=== PATIENT | male | born 1970 | race Caucasian/White ===

== ENCOUNTER 2020-12-22 12:33 | Outpatient (REF) | payer BC, SELFPAY ==
[2020-12-23 07:22] LABS: SARS COV2 PCR INHOUSE NEGATIVE (Negative)
== END 2020-12-22 12:34 | disposition home or self-care (01) ==
LOC: HO.LAB 12:33
PROVIDERS: Visit Provider Internal Medicine
DX: Z20.822 Contact with and (suspected) exposure to COVID-19 (principal)
CPT/HCPCS: C9803; U0003

== ENCOUNTER 2021-10-25 09:49 | Outpatient (REF) | payer BC, SELFPAY ==
[2021-10-25 12:02] LABS: Alanine Aminotransferase 21 U/L (0-40); Albumin Level 4.4 g/dL (3.5-5.0); Alkaline Phosphatase 78 U/L (39-117); Anion Gap 11 (12-20); Aspartate Amino Transferase 19 U/L (5-37); Bilirubin Total 0.4 mg/dL (0.0-1.0); Blood Urea Nitrogen 10 mg/dL (9-16); Calcium 9.8 mg/dL (8.4-10.2); Carbon Dioxide 29 mmol/L (22-29); Chloride 101 mmol/L (96-108); Estimated Glomerular Filt Rate > 60; Glucose Random 109 mg/dL (60-115); Potassium 4.4 mmol/L (3.3-5.1); Sodium 137 mmol/L (135-145); Total Protein 7.2 g/dL (6.5-8.0)
== END 2021-10-25 09:50 | disposition home or self-care (01) ==
LOC: HO.HMGCLDS 09:49
PROVIDERS: PCP Internal Medicine; Visit Provider Internal Medicine
DX: Z00.01 Encounter for general adult medical examination with abnormal findings (principal); I49.9 Cardiac arrhythmia, unspecified; F10.20 Alcohol dependence, uncomplicated
CPT/HCPCS: 36415; 80053

== ENCOUNTER → 2021-12-05 14:07 | Outpatient (BNVA) | payer BC, SELFPAY | PROVIDERS: PCP Internal Medicine; Referring Provider Internal Medicine; Visit Provider Internal Medicine Cardiovascular Disease | DX: I49.3 Ventricular premature depolarization (principal); F17.210 Nicotine dependence, cigarettes, uncomplicated | CPT/HCPCS: 99202 ==

== ENCOUNTER 2021-12-27 06:01 | Outpatient (REF) | payer BC, SELFPAY ==
[2021-12-27 08:07] LABS: Anion Gap 13 (12-20); Blood Urea Nitrogen 14 mg/dL (9-16); Calcium 9.4 mg/dL (8.4-10.2); Carbon Dioxide 28 mmol/L (22-29); Chloride 107 mmol/L (96-108); Cholesterol 168 mg/dL; Estimated Glomerular Filt Rate > 60; Glucose Random 117 mg/dL (60-115); HDL Cholesterol 97 mg/dL; LDL Cholesterol Calculated 65 mg/dl; Potassium 5.1 mmol/L (3.3-5.1); Sodium 143 mmol/L (135-145); Triglycerides 31 mg/dL
[2021-12-29 14:51] LABS: CRP High Sensitivity 2.6 mg/L
== END 2021-12-27 06:02 | disposition home or self-care (01) ==
LOC: HO.LAB 06:01
PROVIDERS: PCP Internal Medicine; Visit Provider Internal Medicine Cardiovascular Disease
DX: I25.10 Atherosclerotic heart disease of native coronary artery without angina pectoris (principal); I49.3 Ventricular premature depolarization; I50.30 Unspecified diastolic (congestive) heart failure; E78.5 Hyperlipidemia, unspecified
CPT/HCPCS: 36415; 80048; 80061; 83735; 86141

== ENCOUNTER → 2022-01-11 07:29 | Outpatient (REF) | payer BC, SELFPAY ==
--- NOTE | 2022-01-11 07:32 | ECG_ITS ---
Hook-up date: 2022-01-11 08:57:00 Duration: 25:56:00 Test Indications: pvc's, abn ekg, card. arrythmia Medications: [id number] QRS complexes 114 Ventricular ectopics which represent <1 % of total QRS comp. 80 Supraventricular ectopics which represent <1 % of total QRS comp. * Paced QRS complexs which represent % of total QRS comp. VENTRICULAR ECTOPY 107 Isolated 0 Bigeminal Cycles 2 Couplets 1 Runs 3 Beats in Runs 3 Beats LONGEST at 174 BPM at 00:12:07 2022-01-12 3 Beats FASTEST at 174 BPM at 00:12:07 2022-01-12 SUPRAVENTRICULAR ECTOPY 39 Isolated 2 Couplets 1 Runs 37 Beats in Runs 37 Beats LONGEST at 133 BPM at 01:55:52 2022-01-12 37 Beats FASTEST at 133 BPM at 01:55:52 2022-01-12 HEART RATES 49 MIN at 05:26:50 2022-01-12 85 AVG 150 MAX at 20:15:19 2022-01-11 LONGEST RR 1.4960 secs at 05:26:45 2022-01-12 S-T LEVELS Channel 1 - 128 mm at 08:57:00 2022-01-11 - 128 mm at 08:57:00 2022-01-11 Channel 2 - 128 mm at 08:57:00 2022-01-11 - 128 mm at 08:57:00 2022-01-11 Channel 3 - 128 mm at 02:81:61 -- - 128 mm at 02:81:61 Basic rhythm Normal sinus rhythm No long pause or profound bradycardia Rare ectopics One 3 beat robert of NSVT at 174 bpm One 37 beats os SVT, ? PAT at 133 bpm Patient did not report any symptoms in the diary Referred By: Brown Saucedo Overread By: BROWN SAUCEDO MD
--- NOTE | 2022-01-11 07:32 | CA_ITS ---
Transthoracic Echocardiogram Patient (Last, First, Middle): John Salas W Gender: Male Date of : 1970 Age: 51 Procedure Date: 01/11/2022 Procedure Type: Transthoracic Echocardiogram Location: OP Height: 193.04 cm Weight: 88.45 kg BSA: 2.19 m2 Heart Rate: bpm BP: 125 / 78 mmHg Monitoring And Evaluation Advisor: VH/TO Referring MD: Deshawn Cam MD Leasing Manager: Brown Saucedo MD Symptoms: I49.3 - Ventricular premature depolarization Study Quality: Fair ECG Rhythm: Sinus Conclusions: - 1. Normal LV systolic and diastolic function 2. Normal cardiac valvular Doppler 3. Normal RV systolic pressure 4. No gross pericardial effusion Findings Left Ventricle Normal left ventricular size, thickness, and systolic function. The visually estimated ejection fraction is between 55-60%. Spectral Doppler is indicative of a normal filling pattern. Right Ventricle Normal right ventricular cavity size and systolic function. Atria The left atrium is likely dilated. There is no evidence of interatrial shunt. The right atrium is normal in size. Aortic Valve Normal aortic valve structure and function. There is no aortic valve stenosis. There is no aortic valve regurgitation. Mitral Valve Normal mitral valve structure and function. There is trace mitral valve regurgitation. There is no mitral valve stenosis. Pulmonic Valve The pulmonic valve was not well visualized. Tricuspid Valve Likely normal tricuspid valve structure and function. There is trace tricuspid valve regurgitation. The right ventricular systolic pressure is normal. The right ventricular systolic pressure is 19 mmHg. There is no evidence of pulmonary hypertension. Great Vessels All visible segments of the aorta are normal in size. The pulmonary artery was not well visualized. Venous The inferior vena cava is mildly dilated and collapses greater than 50% with inspiration. Pericardium/Pleural There is no evidence of pericardial effusion. Prior Study Comparison No prior study available for comparison. Measurements 2D Linear Measurements IVSd: 0.89 0.6-0.9/0.6-1.0 cm LVIDd: 5.17 3.9-5.3/4.2-5.9 cm LVIDd Index: 2.36 2.4-3.2/2.2-3.1 cm/m2 LVIDs: 3.58 2.0-3.6 cm LVPWd: 0.96 0.7-1.1 cm LA Diam: 3.30 2.7-3.8/3.0-4.0 cm LAIDs Index: 1.51 1.5-2.3 cm/m2 LV Mass: 216.38 67-162/88-224 g LV Mass Index: 98.80 43-95/49-115 g/m2 LVOT Diam: 2.50 3.0+(-)1.3 cm 2D Systolic Function EF 4C: 63.20 >55% EF 2C: 50.40 >55% EF BiP: 55.50 >55% Mitral Valve MV Pk E: 0.79 MV PK A: 0.45 MV Decel Time: 201.00 E/A: 1.80 E'Lateral: 13.60 E'Medial: 11.30 E/E' Med: 7.00 E/E' Lat: 5.80 PHT: 59.00 MVA PHT: 3.73 Decel [place]: 3.94 Aortic Valve AoV Pk Rayshawn: 1.31 AoV Mn Rayshawn: 0.87 AoV VTI: 0.26 AoV Pk Grad: 7.00 Aov Mn Grad: 3.00 CRISTELA Cont.VTI: 3.54 LVOT LVOT Pk Rayshawn: 0.97 LVOT Mn Rayshawn: 0.60 LVOT VTI: 0.19 LVOT Pk Grad: 4.00 LVOT Mn Grad: 2.00 LVOT Diam: 2.50 LVOT Area: 4.91 Diastolic Function MV Pk E: 0.79 MV Pk A: 0.45 E/A: 1.80 E'Medial: 11.30 E/E' Med: 7.00 E' Laterial: 13.60 E/E' Lat: 5.80 Right Ventricle TAPSE (mm): 19.80 TVS' Rayshawn: 13.40 Tricuspid Valve TR Pk Rayshawn: 1.97 TR Pk Grad: 16.00 RA Press: 3.00 RVSP: 19.00 Great Vessels Aorta Sinus of Valsalva: 3.90 2.0-3.[address] [place]: 3.21 1.7-3.4 cm Ao Asc: 3.70 2.1-3.4 cm Updated in Other Vendor System with Status of Final Brown Saucedo MD electronically signed on 01/11/2022 12:05:54 PM with status of Final
--- NOTE | 2022-01-11 07:32 | CA_ITS ---
Acquisition Time: 2022-01-11 08:52:07 Total Exercise Time: 00:07:31 Test Indications: Abnormal ECG, PVC'S Medications: Protocol: VKIRAM Max HR: 164 BPM 95% of Pred: 171 BPM Max BP: 206/092 mmHG Max Work Load: 9.3 METS Exercise stress test using Vikram protocol. total of 7 min 31 sec. METS 9.3, MAPHR up to 95 %. Pt tolerated well, fatiqued, mild SOB, no CP. EKG with PVC's seen in recovery, no ischemic changes seen during exercise or in recovery. Hypertensive response to exercise. Test reviewed with Dr. Saucedo. Referred By: Brown Saucedo Overread By: Salome Sabillon NP
== END ==
LOC: HO.CARD 07:29
PROVIDERS: PCP Internal Medicine; Visit Provider Internal Medicine
DX: I49.3 Ventricular premature depolarization (principal); I49.9 Cardiac arrhythmia, unspecified; R94.31 Abnormal electrocardiogram [ECG] [EKG]
CPT/HCPCS: 93017; 93225; 93226; 93306

== ENCOUNTER → 2022-01-31 15:19 | Outpatient (BNVA) | payer BC, SELFPAY | PROVIDERS: PCP Internal Medicine; Referring Provider Internal Medicine; Visit Provider Internal Medicine Cardiovascular Disease | DX: I47.1 Supraventricular tachycardia (principal) ==

== ENCOUNTER 2022-10-15 07:38 | Emergency (ER) | payer BC, SELFPAY ==
[2022-10-15 07:46] VITALS: BMI 23.7
[2022-10-15] MEDS: Lidocaine HCl 1 % MPF 5 ML VIAL SUBCUT (08:34)
[2022-10-15] MEDS: cephALEXin 500 MG CAPSULE PO (08:35)
[2022-10-15] MEDS: Doxycycline Monohydrate 100 MG CAPSULE PO (08:35)
--- NOTE | 2022-10-15 08:35 | ED.SKABFB ---
HPI - Skin/Abscess/Foreign Bdy General Chief complaint: Skin/Abscess/Foreign Body Stated complaint: needs abscess drained on face Time Seen by Provider: 10/15/22 08:07 Source: patient and family Mode of arrival: ambulatory Limitations: no limitations History of Present Illness complaint: abscess/boil Onset (ago): day(s) (For days worse today) Location: face ( right chin) Severity: moderate Quality: aching Pain Consistency: constant Relieving factors: none Exacerbating factors: palpation Context: none Associated symptoms: denies other symptoms Treatments prior to arrival: none Related Data Previous Rx's Medication Instructions Recorded cephalexin 500 mg capsule 500 mg PO Q6H 10 days #40 caps 10/15/22 doxycycline monohydrate 100 mg 100 mg PO BID 10 days #20 tabs 10/15/22 tablet ibuprofen 800 mg tablet 800 mg PO Q8H PRN pain #14 tabs 10/15/22 oxycodone 5 mg tablet 5 mg PO Q6H PRN pain #14 tabs 10/15/22 Allergies Allergy/AdvReac Type Severity Reaction Status Date / Time No Known Allergies Allergy Verified 10/15/22 07:48 Review of Systems Review of Systems: Constitutional : Denies history of same, Denies any other sites involved, Denies IV drug use, Denies history of MRSA, Denies swollen glands, Denies injury, Denies Fever, Denies Chills, + Sig Pain, Denies Systemic symptoms Cardiovascular : No Chest Pain, No SOB Respiratory : No Dyspnea Gastrointestinal : No abdominal pain Musculoskeletal : No Joint Swelling Skin : + abscess with surrounding erythema, No skin laceration, No Foreign bodies, No spreading rash, Denies bites, Denies discharge, Neuro : No Weakness, No Numbness/tingling Psych : No SI/HI/thoughts of self injury Yes all other systems are reviewed and are negative PMF Past Medical History Attestation statement: The following information was validated with the patient. Source: old records reviewed, obtained from family and nursing notes reviewed Surgical History History of varicocele Right toe amputee Family History Family History Father Lung cancer Mother Osteoporosis Maternal Grandmother Afib Paternal Uncle No problems noted. Social History Social History Housing: House Alcohol intake: current Alcohol intake frequency: a few times a week Patient Tobacco Use Status: Current everyday Tobacco user Cigarette Packs Per Day: 1 Use of substances other than those prescribed or required for medical reasons: No Advance Directives: No Advance Directives Information Provided: Yes Current occupational status: employed Physical Exam Vital Signs: Vital Signs: BMI result Body Mass Index 23.7 vital signs have been reviewed as normal and appeared to be correct. Blood pressure normal Heart rate normal. Respiration rate normal. Temperature normal. Oxygen saturation normal. Appearance: Alert. Oriented X3. No acute distress. Head: Normal external exam. Normocephalic. Atraumatic. Eyes: PERRLA. EOMI. Conjunctiva and sclera normal. Eyelids normal. ENT: Pharynx normal. Uvula midline. Moist mucous membranes. Neck: Normal inspection. Neck supple. FROM. CVS: Normal heart rate and rhythm. Respiratory: No respiratory distress. Painless inspiration. Skin: Skin warm and dry. Normal skin color. Normal skin turgor. tender fluctuant 2 cm abscess with surrounding erythema to right chin. No streaking noted. No foreign bodies or active drainage noted at this time.No additional rashes/lesions/lacerations noted. Extremities:Extremities exhibit normal range of motion. Extremities nontender. Neuro: Oriented X 3. No motor deficit. No sensory deficit. Reflexes normal. Normal steady gait. No focal neuro deficits noted. Vascular: + radial pulses. Normal cap refill. No cyanosis noted to upper extremity nails and lower extremity toes nails. Course Course Course Narrative: IMP/Plan: abscess. No systemic toxicity, and pt looks well. + surrounding cellulitis. Not c/w nec fasc/ myositis/ DVT/ osteomyelitis. patient now status post I&D of abscess and patient tolerated procedure well. No complications. No labs or imaging indicated at this time. Will DC home antibiotics and symptomatic treatment instructions return if any new or worsening symptoms to follow up with primary care provider. Patient understands agrees this plan. Medications Administered Discontinued Medications Generic Name Dose Route Start Last Admin Trade Name Freq PRN Reason Stop Dose Admin Cephalexin HCl 500 mg 10/15/22 08:11 10/15/22 08:35 Cephalexin 500 Mg Capsule PO 10/15/22 08:12 500 mg ONCE ONE Administration Doxycycline Monohydrate 100 mg 10/15/22 08:11 10/15/22 08:35 Doxycycline Monohydrate 100 Mg Capsule PO 10/15/22 08:12 100 mg ONCE ONE Administration Lidocaine HCl 5 ml 10/15/22 08:11 10/15/22 08:34 Lidocaine Hcl 1 % Mpf 5 Ml Vial SUBCUT 10/15/22 08:12 5 ml ONCE ONE Administration Procedures Abscess I/D Site: face Side (if applicable): right Local Anesthetic: lidocaine 1% Amount of anesthesia used (mL): 5 Technique: needle aspiration and incised with blade Amount of fluid expressed (mL): 5 Sent for culture/gram staining?: No Irrigation: Yes Packing used?: none Complications: other ( No complications patient tolerated procedure well) Discharge Plan Discharge Clinical Impression: Cellulitis and abscess of face Patient Disposition: Home, Self-Care Instructions: Cellulitis (ED), Abscess Incision and Drainage (DC) Prescriptions: New doxycycline monohydrate 100 mg tablet 100 mg PO BID 10 Days Qty: 20 0RF cephalexin 500 mg capsule 500 mg PO Q6H 10 Days Qty: 40 0RF oxycodone 5 mg tablet 5 mg PO Q6H PRN (Reason: pain) Qty: 14 0RF Rx Instructions: Partial Fill upon patient request. ibuprofen 800 mg tablet 800 mg PO Q8H PRN (Reason: pain) Qty: 14 0RF Referrals: Deshawn Cam MD [Primary Care Provider] - 2 days Stand Alone Forms: Work/School Release Print Language: Micronesian
[2022-10-15 09:00] VITALS: BP 113/80; PULSE 87; RESP 18; TEMP 36.9; O2SAT 97
== END 2022-10-15 09:05 | disposition home or self-care (01) ==
PROVIDERS: Emergency Provider Emergency Medicine; PCP Internal Medicine
DX: L02.01 Cutaneous abscess of face (principal)
CPT/HCPCS: 10060; 99284

== ENCOUNTER 2022-10-17 14:07 | Emergency (ER) | payer BC, SELFPAY ==
--- NOTE | ~2022-10-17 | CT_ITS ---
EXAMINATION: CT SOFT TISSUE NECK WITH CONTRAST CLINICAL INFORMATION: Facial abscess extending into the neck. COMPARISON: None TECHNIQUE: Following the administration of 100 mL of Omnipaque 300 intravenous contrast, helical imaging was performed in the axial plane with generation of coronal and sagittal reformatted images. This CT examination was performed using dose optimization techniques as appropriate, variously including the following: *Automated exposure control *Adjustment of mA and/or kV according to patient size (this includes techniques or standardized protocols for targeted exams where dose is matched to indication/reason for exam; i.e. extremities or head) *Use of iterative reconstruction technique DLP: 568 mGy-cm FINDINGS: There is soft tissue stranding and infiltration of the right-sided gingivobuccal tissues extending through the premandibular region and the inferior aspect of the right submandibular triangle. There is thickening of the fascia including the platysma. Focal phlegmonous change is seen just inferior and lateral to the right mandibular body as seen on series 6 image 56/113. No drainable fluid collection is seen. There is no inflammation along the floor of mouth. There is periapical abscess involving the left central and lateral mandibular incisors. Periapical disease is seen involving the right posterior mandibular molar. The palatine tonsillar fossa and base of tongue appear normal. No inflammation is seen along the floor of mouth. The parotid and submandibular glands are unremarkable. No laryngeal lesion is seen. Reactive appearing lymph nodes are seen in the right more than left submandibular stations as well as at level 2. The largest lymph node on the right at level 2A measures up to 2.0 cm. The thyroid gland is unremarkable. No upper mediastinal adenopathy is seen. There is no consolidation within the upper lungs. No acute intracranial abnormality is seen. The major neck vessels are patent. Mild degenerative changes are seen within the spine. There is complete opacification of the right maxillary sinus with hyperostotic thickening of the maxillary sinus velazquez reflecting sequela of chronic inflammation. CT/CT soft tissue neck w IV con IMPRESSION: 1. Inflammatory changes are seen within the right-sided gingivobuccal tissues extending through the premandibular region and inferior aspect of the right submandibular triangle. Focal phlegmonous change is seen just inferior and lateral to the right mandibular body. No drainable fluid collection is seen. Reactive appearing lymph nodes are seen in the right more than left submandibular stations as well as at level 2. 2. Periapical abscess is seen involving the left central and lateral mandibular incisors. Periapical disease is seen involving the right posterior mandibular molar.
--- NOTE | 2022-10-17 14:57 | ED_ITS ---
HPI - General Adult General Stated complaint: Abscess Related Data Previous Rx's Medication Instructions Recorded cephalexin 500 mg capsule 500 mg PO Q6H 10 days #40 caps 10/15/22 doxycycline monohydrate 100 mg 100 mg PO BID 10 days #20 tabs 10/15/22 tablet ibuprofen 800 mg tablet 800 mg PO Q8H PRN pain #14 tabs 10/15/22 oxycodone 5 mg tablet 5 mg PO Q6H PRN pain #14 tabs 10/15/22 Allergies Allergy/AdvReac Type Severity Reaction Status Date / Time No Known Allergies Allergy Verified 10/15/22 07:48 [facility] Past Medical History Surgical History History of varicocele Right toe amputee Family History Family History Father Lung cancer Mother Osteoporosis Maternal Grandmother Afib Paternal Uncle No problems noted. Social History Social History Housing: House Alcohol intake: current Alcohol intake frequency: a few times a week Patient Tobacco Use Status: Current everyday Tobacco user Cigarette Packs Per Day: 1 Current occupational status: employed Course Course Course Narrative: [employer] - 52 yo male with history of right facial abscess that was drained here 10/15 here with worsening swelling of the right jaw that is now extending into the neck. Pain with opening jaw at home. No fevers at home. Has been compliant with doxy and kelflex. Labs and CT scan ordered. VSS and airway patent in triage Discharge Plan Discharge Prescriptions: No Action doxycycline monohydrate 100 mg tablet 100 mg PO BID 10 Days Qty: 20 0RF cephalexin 500 mg capsule 500 mg PO Q6H 10 Days Qty: 40 0RF oxycodone 5 mg tablet 5 mg PO Q6H PRN (Reason: pain) Qty: 14 0RF Rx Instructions: Partial Fill upon patient request. ibuprofen 800 mg tablet 800 mg PO Q8H PRN (Reason: pain) Qty: 14 0RF
[2022-10-17 14:58] VITALS: BP 141/94; PULSE 99; RESP 18; TEMP 37.1; O2SAT 98; BMI 23.1
[2022-10-17 17:25] LABS: MANUAL DIFF FLAG NO
[2022-10-17 17:43] LABS: Basophils Absolute Auto 0.1 X10*3/uL (0.0-0.2); Basophils Percent Auto 0.8 % (0-2); Eosinophils Absolute Auto 0.2 X10*3/uL (0.0-0.4); Eosinophils Percent Auto 1.8 % (0-4); Hematocrit 41.3 % (42.0-52.0); Hemoglobin 14.6 g/dl (14.0-18.0); Imm Gran Pct Auto 1.1 % (0.0-0.4); Lymphocytes Absolute Auto 2.9 X10*3/uL (1.2-4.9); Lymphocytes Percent Auto 32.2 % (20-40); Mean Corpuscular HGB Conc 35.4 g/dl (31.0-36.0); Mean Corpuscular Hemoglobin 33.6 pg (27.0-33.0); Mean Corpuscular Volume 94.9 fL (80.0-98.0); Mean Platelet Volume 9.9 fL (9.4-12.4); Monocytes Absolute Auto 0.6 X10*3/uL (0.1-1.2); Monocytes Percent Auto 6.4 % (2-11); Neutrophils Absolute Auto 5.2 x10*3/uL (2.0-8.3); Neutrophils Percent Auto 57.7 % (45-73); Platelet Count 317 X10*3/uL (160-400); Red Blood Count 4.35 X10*6/uL (4.60-5.80); Red Cell Distribution Width 12.4 % (11.0-16.0); White Blood Count 8.9 X10*3/uL (4.8-10.8)
[2022-10-17 18:25] LABS: Lactic Acid 1.2 mmol/L (0.5-2.0)
[2022-10-17 18:30] LABS: Alanine Aminotransferase 19 U/L (0-40); Albumin Level 4.3 g/dL (3.5-5.0); Alkaline Phosphatase 72 U/L (39-117); Anion Gap 14 (12-20); Aspartate Amino Transferase 19 U/L (5-37); Bilirubin Direct 0.2 mg/dL (0.0-0.5); Bilirubin Total 0.4 mg/dL (0.0-1.0); Blood Urea Nitrogen 8 mg/dL (9-16); Carbon Dioxide 23 mmol/L (22-29); Chloride 105 mmol/L (96-108); Creatinine Clr Calc Pharmacy 165.7; Estimated Glomerular Filt Rate > 60; Glucose Random 88 mg/dL (60-115); Magnesium 1.9 mg/dL (1.6-2.6); Potassium 4.1 mmol/L (3.3-5.1); Sodium 138 mmol/L (135-145); Total Protein 6.8 g/dL (6.5-8.0)
[2022-10-17] MEDS: iohexoL 350 MG/ML 100 ML INFUS..BTL IV (18:37)
--- NOTE | 2022-10-17 19:01 | ED.SKABFB ---
HPI - Skin/Abscess/Foreign Bdy General Chief complaint: Skin/Abscess/Foreign Body <MANSOOR Holbrook Last Filed: 10/17/22 19:41> Stated complaint: Abscess <MANSOOR Holbrook Last Filed: 10/17/22 19:41> Time Seen by Provider: 10/17/22 17:11 <MANSOOR Holbrook Last Filed: 10/17/22 19:41> Source: patient and family ( at bedside ) <MANSOOR Holbrook Last Filed: 10/17/22 19:41> Mode of arrival: ambulatory <MANSOOR Holbrook Last Filed: 10/17/22 19:41> Limitations: no limitations <MANSOOR Holbrook Last Filed: 10/17/22 19:41> History of Present Illness HPI narrative: 52yoM presenting to the ED c c/o worsening erythema/swelling to the right chin abscess that he had I&D performed by myself on 10/15/22 and sent home on PO antibiotics Of doxycycline and Keflex doxycycline b.i.d. 100 mg and Keflex every 6 hours 500 mg Q6Hrs since the I&D despite taking the PO abx's. Reports he has had thick yellow/green purulent discharge. Otherwise denies fevers, IVDA; h/o MRSA; FCS; Swollen glands; Injury; Suspected FB; Bites; Bleeding; Systemic symptoms, trouble swallowing or breathing, sore throat, cough, SOB, Chest pain or any other symptoms complaints or concerns at this time. <MANSOOR Holbrook Last Filed: 10/17/22 19:41> MD complaint: abscess/boil <MANSOOR Holbrook Last Filed: 10/17/22 19:41> Onset (ago): day(s) <MANSOOR Holbrook Last Filed: 10/17/22 19:41> Location: face (right chin ) <MANSOOR Holbrook Last Filed: 10/17/22 19:41> Severity: moderate <MANSOOR Holbrook Last Filed: 10/17/22 19:41> Quality: aching and constant <MANSOOR Holbrook Last Filed: 10/17/22 19:41> Pain Consistency: constant <MANSOOR Holbrook Last Filed: 10/17/22 19:41> Relieving factors: none <MANSOOR Holbrook Last Filed: 10/17/22 19:41> Exacerbating factors: palpation <MANSOOR Holbrook Last Filed: 10/17/22 19:41> Context: none <MANSOOR Holbrook Last Filed: 10/17/22 19:41> Associated symptoms: denies other symptoms <MANSOOR Holbrook Last Filed: 10/17/22 19:41> Treatments prior to arrival: other (see above ) <MANSOOR Holbrook Last Filed: 10/17/22 19:41> Related Data Home medications: Previous Rx's Medication Instructions Recorded cephalexin 500 mg capsule 500 mg PO Q6H 10 days #40 caps 10/15/22 doxycycline monohydrate 100 mg 100 mg PO BID 10 days #20 tabs 10/15/22 tablet amoxicillin 500 mg-potassium 1 tab PO BID #19 tabs 10/17/22 clavulanate 125 mg tablet (Augmentin) <MANSOOR Holbrook Last Filed: 10/17/22 19:41> Allergies/Adverse reactions: Allergies Allergy/AdvReac Type Severity Reaction Status Date / Time No Known Allergies Allergy Verified 10/15/22 07:48 <MANSOOR Holbrook Last Filed: 10/17/22 19:41> Review of Systems Review of Systems: Constitutional : Denies history of same, Denies any other sites involved, Denies IV drug use, Denies history of MRSA, Denies swollen glands, Denies injury, Denies Fever, Denies Chills, + Sig Pain, Denies Systemic symptoms Cardiovascular : No Chest Pain, No SOB Respiratory : No Dyspnea Gastrointestinal : No abdominal pain Musculoskeletal : No Joint Swelling Skin : + abscess with surrounding erythema and + purulent discharge and + spreading rash/erythema, No skin laceration, No Foreign bodies, Denies bites, Neuro : No Weakness, No Numbness/tingling Psych : No SI/HI/thoughts of self injury <MANSOOR Holbrook Last Filed: 10/17/22 19:41> Yes all other systems are reviewed and are negative <MANSOOR Holbrook Last Filed: 10/17/22 19:41> PMFSH Past Medical History Attestation statement: The following information was validated with the patient. <MANSOOR Holbrook - Last Filed: 10/17/22 19:41> Source: old records reviewed and nursing notes reviewed <MANSOOR Holbrook - Last Filed: 10/17/22 19:41> Surgical History: Surgical History History of varicocele Right toe amputee <MANSOOR Holbrook - Last Filed: 10/17/22 19:41> Family History Family History: Family History Father Lung cancer Mother Osteoporosis Maternal Grandmother Afib Paternal Uncle No problems noted. <MANSOOR Holbrook - Last Filed: 10/17/22 19:41> Social History Social History: Social History Housing: House Alcohol intake: current Alcohol intake frequency: a few times a week Patient Tobacco Use Status: Current everyday Tobacco user Cigarette Packs Per Day: 1 Advance Directives: No Advance Directives Information Provided: Yes Current occupational status: employed <MANSOOR Holbrook - Last Filed: 10/17/22 19:41> Physical Exam Vital Signs: Vital Signs: Last Vital Signs Temp 98.7 F 10/17/22 14:58 Pulse 99 10/17/22 14:58 Resp 18 10/17/22 14:58 BP 141/94 H 10/17/22 14:58 Pulse Ox 98 10/17/22 14:58 O2 Del Method 10/17/22 14:58 BMI result Body Mass Index 23.1 vital signs have been reviewed as normal and appeared to be correct. Blood pressure 141/94 Heart rate normal. Respiration rate normal. Temperature normal. Oxygen saturation normal. <MANSOOR Holbrook - Last Filed: 10/17/22 19:41> Vital Signs: Last Vital Signs Temp 98.7 F 10/17/22 14:58 Pulse 99 10/17/22 14:58 Resp 18 10/17/22 14:58 BP 141/94 H 10/17/22 14:58 Pulse Ox 98 10/17/22 14:58 O2 Del Method 10/17/22 14:58 BMI result Body Mass Index 23.1 <Lalita Case MD - Last Filed: 10/17/22 20:42> Appearance: Alert. Oriented X3. No acute distress. Head: Normal external exam. Normocephalic. Atraumatic. Eyes: PERRLA. EOMI. Conjunctiva and sclera normal. Eyelids normal. ENT: Pharynx normal. Uvula midline. Moist mucous membranes. Neck: Normal inspection. Neck supple. FROM. CVS: Normal heart rate and rhythm. Respiratory: No respiratory distress. Painless inspiration. Skin: Skin warm and dry. Normal skin color. Normal skin turgor. to the right side of the chin patient has moderate soft tissue swelling and induration and tenderness to palpation around where he had the I&D abscess. Mild erythema spreading to the right lateral neck. No streaking is noted. No purulent drainage is noted on my exam at this time. pictures below noted. No additional rashes/lesions/lacerations noted. Extremities:Extremities exhibit normal range of motion. Extremities nontender. Neuro: Oriented X 3. No motor deficit. No sensory deficit. Reflexes normal. Normal steady gait. No focal neuro deficits noted. Vascular: + radial pulses Normal cap refill. No cyanosis noted to upper extremity nails <MANSOOR Holbrook - Last Filed: 10/17/22 19:41> Course Course Course Narrative: RME - 52 yo male with history of right facial abscess that was drained here 10/15 here with worsening swelling of the right jaw that is now extending into the neck. Pain with opening jaw at home. No fevers at home. Has been compliant with doxy and kelflex. Labs and CT scan ordered. VSS and airway patent in triage <MANSOOR Holbrook - Last Filed: 10/17/22 19:41> Reevaluation(s) Reevaluation #1: 52yoM presenting to the ED c c/o worsening erythema/swelling to the right chin abscess that he had I&D performed by myself on 10/15/22 and sent home on PO antibiotics Of doxycycline and Keflex doxycycline b.i.d. 100 mg and Keflex every 6 hours 500 mg Q6Hrs since the I&D despite taking the PO abx's. Reports he has had thick yellow/green purulent discharge. Labs were ordered in triage although patient did not have his labs obtained. Therefore at this time labs will be obtained along with CT soft tissue neck with IV contrast, blood cultures, lactic acid. Provide IV Zosyn and a L of IV fluids and re-evaluate. <MANSOOR Holbrook - Last Filed: 10/17/22 19:41> Time: 17:00 <MANSOOR Holbrook - Last Filed: 10/17/22 19:41> Reevaluation #2: Labs reviewed - patient does not have any leukocytosis. BUN is 8. Otherwise all other labs are within normal limits. imaging reviewed - negative for any drainable abscesses or collections to the right sided gingival / mandibular aspect. Although is patient is noted to have multiple periapical abscesses. Therefore at this time will plan to admit for failed outpatient treatment. Patient with at bedside understand and are agreeable to this plan. Speaking to the hospitalist about this at this time. <MANSOOR Holbrook - Last Filed: 10/17/22 19:41> Time: 19:17 <MANSOOR Holbrook - Last Filed: 10/17/22 19:41> Reevaluation #3: I was informed by Dr. Bautista, that she evaluated the patient, patient can be treated with the correct antibiotics at home, they already have an appointment planned with the dentist. I evaluated the patient myself, patient does have swelling, no purulence, reviewed the CT scan as well. Patient has per pickle abscesses involving the left central and lateral mandibular incisors. Patient given the 1st dose of Augmentin in the emergency room. Patient states that he prefers to go home. Hospitalization was considered by MANSOOR Wright. <Lalita Case MD - Last Filed: 10/17/22 20:42> Time: 20:38 <Lalita Case MD - Last Filed: 10/17/22 20:42> Medications Administered Discontinued Medications Generic Name Dose Route Start Last Admin Trade Name Freq PRN Reason Stop Dose Admin Piperacillin Sod/Tazobactam 50 mls @ 100 mls/hr 10/17/22 18:27 10/17/22 19:42 Sod 3.375 gm/ Sodium Chloride IV 10/17/22 18:56 Infused ONCE ONE Infusion Sodium Chloride 1,000 mls @ 999 mls/hr 10/17/22 18:30 10/17/22 19:09 Ns IVCONT 10/17/22 19:30 999 mls/hr .Q1H1M VERA Administration Iohexol 100 ml 10/17/22 18:36 10/17/22 18:37 Iohexol 350 Mg/Ml 100 Ml Infus..Btl IV 10/17/22 18:37 60 ml ONCE ONE Administration <MANSOOR Holbrook - Last Filed: 10/17/22 19:41> Medications Administered Discontinued Medications Generic Name Dose Route Start Last Admin Trade Name Freq PRN Reason Stop Dose Admin Piperacillin Sod/Tazobactam 50 mls @ 100 mls/hr 10/17/22 18:27 10/17/22 19:42 Sod 3.375 gm/ Sodium Chloride IV 10/17/22 18:56 Infused ONCE ONE Infusion Sodium Chloride 1,000 mls @ 999 mls/hr 10/17/22 18:30 10/17/22 19:09 Ns IVCONT 10/17/22 19:30 999 mls/hr .Q1H1M VERA Administration Iohexol 100 ml 10/17/22 18:36 10/17/22 18:37 Iohexol 350 Mg/Ml 100 Ml Infus..Btl IV 10/17/22 18:37 60 ml ONCE ONE Administration <Lalita Case MD - Last Filed: 10/17/22 20:42> Medical Decision Making Admission/Observation Consideration of admission/observation: Escalation of care including admission/observation considered <MANSOOR Holbrook - Last Filed: 10/17/22 19:41> Consult Healthcare Provider Management of the patient was discussed with: Hospitalist <MANSOOR Holbrook - Last Filed: 10/17/22 19:41> Lab Data MDM Lab Attestation statement: I reviewed the patient's lab results. <MANSOOR Holbrook - Last Filed: 10/17/22 19:41> Result Diagrams: 10/17/22 17:22 10/17/22 17:54 <MANSOOR Holbrook - Last Filed: 10/17/22 19:41> Labs: Lab Results 10/17/22 10/17/22 10/17/22 Range/Units 17:22 17:22 17:54 WBC 8.9 (4.8-10.8) X10*3/uL RBC 4.35 L (4.60-5.80) X10*6/uL Hgb 14.6 (14.0-18.0) g/dl Hct 41.3 L (42.0-52.0) % MCV 94.9 (80.0-98.0) fL MCH 33.6 H (27.0-33.0) pg MCHC 35.4 (31.0-36.0) g/dl RDW 12.4 (11.0-16.0) % Plt Count 317 (160-400) X10*3/uL MPV 9.9 (9.4-12.4) fL Immature Gran % (Auto) 1.1 H (0.0-0.4) % Neut % (Auto) 57.7 (45-73) % Lymph % (Auto) 32.2 (20-40) % [place] % (Auto) 6.4 (2-11) % Eos % (Auto) 1.8 (0-4) % Baso % (Auto) 0.8 (0-2) % Lymph # (Auto) 2.9 (1.2-4.9) X10*3/uL [place] # (Auto) 0.6 (0.1-1.2) X10*3/uL Eos # (Auto) 0.2 (0.0-0.4) X10*3/uL Baso # (Auto) 0.1 (0.0-0.2) X10*3/uL Abs Immat Gran (auto) 0.10 H (0.00-0.03) X10*3/uL Absolute Neuts (auto) 5.2 (2.0-8.3) x10*3/uL Absolute Nucleated RBC 0.000 (0.0-0.012) X10*3/uL Nucleated RBC % (auto) 0.0 (0.0-0.2) /100WBC Sodium 138 (135-145) mmol/L Potassium 4.1 (3.3-5.1) mmol/L Chloride 105 (96-108) mmol/L Carbon Dioxide 23 (22-29) mmol/L Anion Gap 14 (12-20) BUN 8 L (9-16) mg/dL Creatinine 0.65 (0.5-1.4) mg/dL Estim Creat Clear Calc 165.7 Estimated GFR > 60 Random Glucose 88 (60-115) mg/dL Lactic Acid (0.5-2.0) mmol/L Calcium 9.0 (8.4-10.2) mg/dL Magnesium Cancelled 1.9 Total Bilirubin 0.4 (0.0-1.0) mg/dL Direct Bilirubin 0.2 (0.0-0.5) mg/dL AST 19 (5-37) U/L ALT 19 (0-40) U/L Alkaline Phosphatase 72 (39-117) U/L C-Reactive Protein 2.27 H (< or = 0.50) mg/dL Total Protein 6.8 (6.5-8.0) g/dL Albumin 4.3 (3.5-5.0) g/dL 10/17/22 Range/Units 17:54 WBC (4.8-10.8) X10*3/uL RBC (4.60-5.80) X10*6/uL Hgb (14.0-18.0) g/dl Hct (42.0-52.0) % MCV (80.0-98.0) fL MCH (27.0-33.0) pg MCHC (31.0-36.0) g/dl RDW (11.0-16.0) % Plt Count (160-400) X10*3/uL MPV (9.4-12.4) fL Immature Gran % (Auto) (0.0-0.4) % Neut % (Auto) (45-73) % Lymph % (Auto) (20-40) % [place] % (Auto) (2-11) % Eos % (Auto) (0-4) % Baso % (Auto) (0-2) % Lymph # (Auto) (1.2-4.9) X10*3/uL [place] # (Auto) (0.1-1.2) X10*3/uL Eos # (Auto) (0.0-0.4) X10*3/uL Baso # (Auto) (0.0-0.2) X10*3/uL Abs Immat Gran (auto) (0.00-0.03) X10*3/uL Absolute Neuts (auto) (2.0-8.3) x10*3/uL Absolute Nucleated RBC (0.0-0.012) X10*3/uL Nucleated RBC % (auto) (0.0-0.2) /100WBC Sodium (135-145) mmol/L Potassium (3.3-5.1) mmol/L Chloride (96-108) mmol/L Carbon Dioxide (22-29) mmol/L Anion Gap (12-20) BUN (9-16) mg/dL Creatinine (0.5-1.4) mg/dL Estim Creat Clear Calc Estimated GFR Random Glucose (60-115) mg/dL Lactic Acid 1.2 (0.5-2.0) mmol/L Calcium (8.4-10.2) mg/dL Magnesium Total Bilirubin (0.0-1.0) mg/dL Direct Bilirubin (0.0-0.5) mg/dL AST (5-37) U/L ALT (0-40) U/L Alkaline Phosphatase (39-117) U/L C-Reactive Protein (< or = 0.50) mg/dL Total Protein (6.5-8.0) g/dL Albumin (3.5-5.0) g/dL <MANSOOR Holbrook - Last Filed: 10/17/22 19:41> Lab Results 10/17/22 10/17/22 10/17/22 Range/Units 17:22 17:22 17:54 WBC 8.9 (4.8-10.8) X10*3/uL RBC 4.35 L (4.60-5.80) X10*6/uL Hgb 14.6 (14.0-18.0) g/dl Hct 41.3 L (42.0-52.0) % MCV 94.9 (80.0-98.0) fL MCH 33.6 H (27.0-33.0) pg MCHC 35.4 (31.0-36.0) g/dl RDW 12.4 (11.0-16.0) % Plt Count 317 (160-400) X10*3/uL MPV 9.9 (9.4-12.4) fL Immature Gran % (Auto) 1.1 H (0.0-0.4) % Neut % (Auto) 57.7 (45-73) % Lymph % (Auto) 32.2 (20-40) % [place] % (Auto) 6.4 (2-11) % Eos % (Auto) 1.8 (0-4) % Baso % (Auto) 0.8 (0-2) % Lymph # (Auto) 2.9 (1.2-4.9) X10*3/uL [place] # (Auto) 0.6 (0.1-1.2) X10*3/uL Eos # (Auto) 0.2 (0.0-0.4) X10*3/uL Baso # (Auto) 0.1 (0.0-0.2) X10*3/uL Abs Immat Gran (auto) 0.10 H (0.00-0.03) X10*3/uL Absolute Neuts (auto) 5.2 (2.0-8.3) x10*3/uL Absolute Nucleated RBC 0.000 (0.0-0.012) X10*3/uL Nucleated RBC % (auto) 0.0 (0.0-0.2) /100WBC Sodium 138 (135-145) mmol/L Potassium 4.1 (3.3-5.1) mmol/L Chloride 105 (96-108) mmol/L Carbon Dioxide 23 (22-29) mmol/L Anion Gap 14 (12-20) BUN 8 L (9-16) mg/dL Creatinine 0.65 (0.5-1.4) mg/dL Estim Creat Clear Calc 165.7 Estimated GFR > 60 Random Glucose 88 (60-115) mg/dL Lactic Acid (0.5-2.0) mmol/L Calcium 9.0 (8.4-10.2) mg/dL Magnesium Cancelled 1.9 Total Bilirubin 0.4 (0.0-1.0) mg/dL Direct Bilirubin 0.2 (0.0-0.5) mg/dL AST 19 (5-37) U/L ALT 19 (0-40) U/L Alkaline Phosphatase 72 (39-117) U/L C-Reactive Protein 2.27 H (< or = 0.50) mg/dL Total Protein 6.8 (6.5-8.0) g/dL Albumin 4.3 (3.5-5.0) g/dL 10/17/22 Range/Units 17:54 WBC (4.8-10.8) X10*3/uL RBC (4.60-5.80) X10*6/uL Hgb (14.0-18.0) g/dl Hct (42.0-52.0) % MCV (80.0-98.0) fL MCH (27.0-33.0) pg MCHC (31.0-36.0) g/dl RDW (11.0-16.0) % Plt Count (160-400) X10*3/uL MPV (9.4-12.4) fL Immature Gran % (Auto) (0.0-0.4) % Neut % (Auto) (45-73) % Lymph % (Auto) (20-40) % [place] % (Auto) (2-11) % Eos % (Auto) (0-4) % Baso % (Auto) (0-2) % Lymph # (Auto) (1.2-4.9) X10*3/uL [place] # (Auto) (0.1-1.2) X10*3/uL Eos # (Auto) (0.0-0.4) X10*3/uL Baso # (Auto) (0.0-0.2) X10*3/uL Abs Immat Gran (auto) (0.00-0.03) X10*3/uL Absolute Neuts (auto) (2.0-8.3) x10*3/uL Absolute Nucleated RBC (0.0-0.012) X10*3/uL Nucleated RBC % (auto) (0.0-0.2) /100WBC Sodium (135-145) mmol/L Potassium (3.3-5.1) mmol/L Chloride (96-108) mmol/L Carbon Dioxide (22-29) mmol/L Anion Gap (12-20) BUN (9-16) mg/dL Creatinine (0.5-1.4) mg/dL Estim Creat Clear Calc Estimated GFR Random Glucose (60-115) mg/dL Lactic Acid 1.2 (0.5-2.0) mmol/L Calcium (8.4-10.2) mg/dL Magnesium Total Bilirubin (0.0-1.0) mg/dL Direct Bilirubin (0.0-0.5) mg/dL AST (5-37) U/L ALT (0-40) U/L Alkaline Phosphatase (39-117) U/L C-Reactive Protein (< or = 0.50) mg/dL Total Protein (6.5-8.0) g/dL Albumin (3.5-5.0) g/dL <Lalita Case MD - Last Filed: 10/17/22 20:42> Independent Interpretation I performed an independent interpretation of an: CT Scan <MANSOOR Holbrook - Last Filed: 10/17/22 19:41> Interpretation: DLP: 568 mGy-cm FINDINGS: There is soft tissue stranding and infiltration of the right-sided gingivobuccal tissues extending through the premandibular region and the inferior aspect of the right submandibular triangle. There is thickening of the fascia including the platysma. Focal phlegmonous change is seen just inferior and lateral to the right mandibular body as seen on series 6 image 56/113. No drainable fluid collection is seen. There is no inflammation along the floor of mouth. There is periapical abscess involving the left central and lateral mandibular incisors. Periapical disease is seen involving the right posterior mandibular molar. The palatine tonsillar fossa and base of tongue appear normal. No inflammation is seen along the floor of mouth. The parotid and submandibular glands are unremarkable. No laryngeal lesion is seen. Reactive appearing lymph nodes are seen in the right more than left submandibular stations as well as at level 2. The largest lymph node on the right at level 2A measures up to 2.0 cm. The thyroid gland is unremarkable. No upper mediastinal adenopathy is seen. There is no consolidation within the upper lungs. No acute intracranial abnormality is seen. The major neck vessels are patent. Mild degenerative changes are seen within the spine. There is complete opacification of the right maxillary sinus with hyperostotic thickening of the maxillary sinus velazquez reflecting sequela of chronic inflammation. CT/CT soft tissue neck w IV con IMPRESSION:? 1.? Inflammatory changes are seen within the right-sided gingivobuccal tissues extending through the premandibular region and inferior aspect of the right submandibular triangle. Focal phlegmonous change is seen just inferior and lateral to the right mandibular body. No drainable fluid collection is seen. Reactive appearing lymph nodes are seen in the right more than left submandibular stations as well as at level 2. 2.? Periapical abscess is seen involving the left central and lateral mandibular incisors. Periapical disease is seen involving the right posterior mandibular molar. <MANSOOR Holbrook Last Filed: 10/17/22 19:41> Radiology Impression Discussion of test interpretation with radiology: I have reviewed the radiologist's reading. <MANSOOR Holbrook Last Filed: 10/17/22 19:41> Independent Historian Clinical information obtained from an independent historian. History obtained from or confirmed by: Spouse <MANSOOR Holbrook Last Filed: 10/17/22 19:41> Prescription Management I considered prescription management with: Pain Medication and Antibiotic <MANSOOR Holbrook Last Filed: 10/17/22 19:41> Critical Care Time Critical Care Time Critical Care Time: Yes <MANSOOR Holbrook Last Filed: 10/17/22 19:41> Total Critical Care Time: 60 <MANSOOR Holbrook - Last Filed: 10/17/22 19:41> Attestation: I personally attest to this time spent taking care of the patient <MANSOOR Holbrook Last Filed: 10/17/22 19:41> Discharge Plan Discharge Clinical Impression: Cellulitis, Abscess of skin or subcutaneous tissue <MANSOOR Holbrook Last Filed: 10/17/22 19:41> Patient Disposition: Home, Self-Care <MANSOOR Holbrook Last Filed: 10/17/22 19:41> Instructions: Cellulitis (ED) <MANSOOR Holbrook Last Filed: 10/17/22 19:41> Additional Instructions: Please follow-up with your primary care physician tomorrow and your dentist. If you have any worsening or new symptoms, please return to the emergency room or call 911 <MANSOOR Holbrook Last Filed: 10/17/22 19:41> Prescriptions: New amoxicillin-pot clavulanate [Augmentin] 500-125 mg tablet 1 tab PO BID Qty: 19 0RF No Action doxycycline monohydrate 100 mg tablet 100 mg PO BID 10 Days Qty: 20 0RF cephalexin 500 mg capsule 500 mg PO Q6H 10 Days Qty: 40 0RF Rx Instructions: STARTED ON 10/15/22 PATIENT HAS HAD 2 FULL DAYS OF TREATMENT <MANSOOR Holbrook - Last Filed: 10/17/22 19:41> Stand Alone Forms: Work/School Release <MANSOOR Holbrook - Last Filed: 10/17/22 19:41>
[2022-10-17] MEDS: 0.9 % Sodium Chloride 1,000 ML 999 ML IVCONT (19:09)
[2022-10-17] MEDS: Piperacillin Sodium/Tazobactam 3.375 GM in 0.9 % Sodium Chloride 50 ML IV (19:12)
[2022-10-17 20:00] LABS: C Reactive Protein 2.27 mg/dL (< or = 0.50)
--- NOTE | 2022-10-17 20:00 | PHA.MEDREC ---
MED REC COMPLETE, NO ISSUES Pharmacy Consult ? Medication Reconciliation Pharmacy has completed the medication reconciliation.
[2022-10-17 20:41] LABS: Erythrocyte Sedimentation Rate 12 MM/HR (0-15)
[2022-10-17] MEDS: Amoxicillin/Potassium Clav 875 MG TABLET PO (20:45)
== END 2022-10-18 14:20 | disposition home or self-care (01) ==
PROVIDERS: Physician Assistant; Physician Assistant Medical; Emergency Provider Emergency Medicine Emergency Medical Services; PCP Internal Medicine
DX: L03.211 Cellulitis of face (principal); R51.9 Headache, unspecified; M54.2 Cervicalgia; F17.200 Nicotine dependence, unspecified, uncomplicated; F17.210 Nicotine dependence, cigarettes, uncomplicated; Z71.6 Tobacco abuse counseling; Z79.899 Other long term (current) drug therapy
CPT/HCPCS: 36415; 70491; 80048; 80076; 83605; 83735; 85025; 85652; 86140; 87040; 96361; 96374; 99283; 99284; J2543; Q9967

== ENCOUNTER → 2023-02-01 08:23 | Outpatient (BNVA) | payer BC, SELFPAY | PROVIDERS: PCP Internal Medicine; Referring Provider Internal Medicine; Visit Provider Internal Medicine Cardiovascular Disease | DX: I49.3 Ventricular premature depolarization (principal); I47.1 Supraventricular tachycardia | CPT/HCPCS: 93005 ==

== ENCOUNTER → 2023-02-08 11:20 | Outpatient (BNVA) | payer BC, SELFPAY | PROVIDERS: PCP Internal Medicine; Visit Provider Physician Assistant ==

== ENCOUNTER 2023-05-08 06:19 | Day surgery (SDC) | payer BC, SELFPAY ==
[2023-05-04 10:59] VITALS: BMI 23.1
--- NOTE | 2023-05-07 10:04 | P.CONAN_ITS ---
Documented by User: Hannah Burdick NP 05/07/23 10:14 HPI - Anesthesia Eval Consult details Narrative: 52yo M for Colonoscopy Routine cardiology appoint 01/2023. Stable palps/SVT - symptoms only with stress. 2 year f/u. [facility] Active Problems Active Problems: All Active Problems (Updated 05/04/23 @ 10:54 by Cathy Reyes RN) Encounter for general adult medical examination with abnormal findings (Acute) Tobacco abuse (Acute) Tick bite of chest wall (Acute) Alcoholism (Acute) Irregular heartbeat (Acute) Abnormal EKG (Acute) Premature ventricular contractions (PVCs) (VPCs) (Acute) SVT (supraventricular tachycardia) (Acute) Colon cancer screening (Acute) Adult general medical exam (Acute) Past Medical History Medical History Alcohol dependence PVC (premature ventricular contraction) SVT (supraventricular tachycardia) Family History Family History Father Lung cancer Mother Osteoporosis Maternal Grandmother Afib Paternal Uncle No problems noted. 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 Hearing needs: No Vision needs: No Meds Allergies Allergy/AdvReac Type Severity Reaction Status Date / Time No Known Allergies Allergy Verified 02/08/23 11:32 Home Medications Medication Instructions Recorded Confirmed Last Taken Type No Known Home Meds 05/08/23 05/08/23 Unknown History Exam Exam Date and Time: May 07, 2023 1004 Height,Weight and Vital Signs: Height 6 ft 4 in Weight 86.183 kg Pertinent Lab Results Pertinent Lab Results: Laboratory Tests 10/17/22 10/17/22 17:22 17:54 WBC 8.9 Hgb 14.6 Hct 41.3 L Plt Count 317 Sodium 138 Potassium 4.1 Chloride 105 Carbon Dioxide 23 BUN 8 L Creatinine 0.65 Narrative Narrative: EKG 01/2023 normal sinus rhythm with occasional PVC ECHO 2021 Conclusions: - 1.? Normal LV systolic and diastolic function? 2.? Normal cardiac valvular Doppler? 3.? Normal RV systolic pressure? 4. No gross pericardial effusion ? ? ? Assessment and Plan Assessment Anesthesia Assessment: Chart Reviewed Documented by User: Tory Alejo MD 05/08/23 07:31 [facility] Past Medical History Medical History Alcohol dependence PVC (premature ventricular contraction) SVT (supraventricular tachycardia) Family History Family History Father Lung cancer Mother Osteoporosis Maternal Grandmother Afib Paternal Uncle No problems noted. Family history of problems with anesthesia: No Surgical History Surgical History History of varicocele Right toe amputee History of Problems with Anesthesia: No Social History Social History Housing: House Alcohol intake: current Alcohol intake frequency: holidays/special occasions only Patient Tobacco Use Status: Current everyday Tobacco user Tobacco use type: Cigarette Cigarette Packs Per Day: 1 Cigarettes Per Day: 20.0 e-Cigarette/Vaping Use: Never Used Use of substances other than those prescribed or required for medical reasons: No Are you DNR?: No Advance Directives: No Advance Directives Information Provided: Yes service: No Current occupational status: employed 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 Hearing needs: No Vision needs: No Meds Allergies Allergy/AdvReac Type Severity Reaction Status Date / Time No Known Allergies Allergy Verified 02/08/23 11:32 Home Medications Medication Instructions Recorded Confirmed Last Taken Type No Known Home Meds 05/08/23 05/08/23 Unknown History Exam Airway Mallampati Class: II TM Dist: >3cm Neck ROM: Full Heart: rrr Lungs: cta Assessment and Plan Assessment Anesthesia Assessment: Anesthesia Plan Discussed Final Anesthetic Review Family History of Problems with Anesthesia: No History of Problems with Anesthesia: No NPO: Yes ASA Class: II Final Preanesthetic Review: No Changes in Pt Med Stat, Meds/Allgs Chart Reviewed, Consent Obtained/Reviewed and Anes Risks/Benef Reviewed Patient Risk: Low Procedure Risk: Low Anesthetic Plan Anesthetic Plan: MAC: Disposition: Standard PACU
--- NOTE | 2023-05-08 06:23 | P.HPSUR_ITS ---
Pre-Procedural Eval Section A Date of Service: 05/08/23 Section B Chief Complaint: screening Relevant Family History (Specify if Yes): No Relevant Social History: Tobacco Use (alcohol) Present Medications: see Short Stay Collaborative assessment Medical History: Significant History (Alcohol dependence PVC (premature ventricular contraction) SVT (supraventricular tachycardia)) History of Previous Operations: Relevant previous surgery/procedure and date(s) (varicocele, toe amputation) Allergies: Allergies Allergy/AdvReac Type Severity Reaction Status Date / Time No Known Allergies Allergy Verified 02/08/23 11:32 Review of Systems Sugical H&P ROS: Negative: Constitution, Cardiovascular, Respiratory, Neurological, Psychiatric, Hem-Onc, Allergic/Immunologic, Gastrointestinal, Genitourinary, Musculoskeletal, Integumentary, Endocrine and Eyes/Ears/Nose/T hroat Exam Surgical H&P Exam: Normal: HEENT, Normal: Heart, Normal: Lungs, Normal: Extremities, Normal: Abdomen, Normal: Skin and Normal: Neurological Plan Diagnosis/Plan: Unchanged I have reviewed the history and physical and performed a pertinent physical examination on my patient. No changes have occurred unless specified. Time Spent With Patient Time: Total time managing care of this patient today ____ minutes.
[2023-05-08 06:44] VITALS: BP 125/83; PULSE 92; RESP 16; TEMP 36.6; O2SAT 99
[2023-05-08] MEDS: Lactated Ringers 1,000 ML 100 ML IVCONT (06:51)
--- NOTE | 2023-05-08 07:38 | W.PM.OPN ---
Operative Note Operative Note Date of Service: 05/08/23 Narrative: Operative Information Procedure Description: Colonoscopy Indication: screening Anesthesia: MAC COLONOSCOPY Instrument: Olympus variable stiffness pediatric scope 190L Colonoscopy Monitoring: Vital signs and clinical assessment, continuous EKG monitoring, Pulse oximetry, Carbon Dioxide monitoring and blood pressure monitoring were done throughout the procedure. Colon withdrawal time was 13 minutes. Procedure: The patient was placed in the left lateral decubitis position and pre-procedure medications were administered. After a digital rectal examination of the ano-rectum, the video colonoscope was inserted into the rectum and advanced through the colon to the cecum/TI. The colonoscope was slowly withdrawn in a retrograde panoramic fashion and the colon mucosa was carefully examined including a retroflexed view of the rectum. Findings and interventions are described below. Procedure Difficulty: moderate due to looping Findings: Terminal Ileum- superficially intubated and appeared normal Cecum: 8 mm sessile polyp removed with cold snare Ascending Colon: normal Transverse Colon -normal Descending Colon:normal Sigmoid Colon: normal Rectum: Retroflexion with medium sized internal hemorrhoids, grade I Anorectum - normal Colon preparation: [place] Bowel Preparation Scale Right colon; 2 Transverse colon: 2 Left colon; 3 (0 = Unprepared colon segment with mucosa not seen due to solid stool that cannot be cleared. 1 = Portion of mucosa of the colon segment seen, but other areas of the colon segment not well seen due to staining, residual stool and/or opaque liquid. 2 = Minor amount of residual staining, small fragments of stool and/or opaque liquid, but mucosa of colon segment seen well. 3 = Entire mucosa of colon segment seen well with no residual staining, small fragments of stool or opaque liquid) Impression and Post Procedure Diagnosis: polyp internal hemorrhoids Plan: High fiber diet leaflet Avoid straining at stool, epsom salts and sitz bath, anusol supps or cream Repeat Colonoscopy in 5 years due to polyp or earlier if clinically indicated Above findings were reviewed with the patient and relevant handouts were provided if indicated.
[2023-05-08 08:05] VITALS: BP 98/65; PULSE 85; RESP 20; TEMP 36.3; O2SAT 97
[2023-05-08 08:20] VITALS: BP 97/73; PULSE 81; RESP 18; TEMP 36.3; O2SAT 98
== END 2023-05-08 08:40 | disposition home or self-care (01) ==
PROVIDERS: PCP Internal Medicine; Visit Provider Internal Medicine Gastroenterology
PROC: 0DJD8ZZ Inspection of Lower Intestinal Tract, Via Natural or Artificial Opening Endoscopic (ICD-10-PCS; CPT 45378; principal; 2023-05-08 07:30)
DX: Z12.11 Encounter for screening for malignant neoplasm of colon (principal); D12.0 Benign neoplasm of cecum; K64.0 First degree hemorrhoids; I49.3 Ventricular premature depolarization; I47.1 Supraventricular tachycardia; F10.20 Alcohol dependence, uncomplicated; Z89.421 Acquired absence of other right toe(s); F17.210 Nicotine dependence, cigarettes, uncomplicated
CPT/HCPCS: 45385; 88305

== ENCOUNTER → 2023-05-08 06:19 | Outpatient (BNV) | payer BC, SELFPAY | PROVIDERS: PCP Internal Medicine; Visit Provider Internal Medicine Gastroenterology | DX: Z12.11 Encounter for screening for malignant neoplasm of colon (principal); D12.0 Benign neoplasm of cecum; K64.0 First degree hemorrhoids | CPT/HCPCS: 45385 ==

== ENCOUNTER 2023-05-21 07:20 | Outpatient (AMB) | payer BC, SELFPAY ==
--- NOTE | 2023-05-21 07:39 | MHC.OFFVIS ---
Intake Vital Signs 05/21/23 07:40 Height 6 ft 4 in Weight 177 lb BMI 21.5 BP 113/79 Blood Pressure Location Lt brachial Position Sitting Pulse 104 H Intake Visit Reasons: S/P Screening; [place] Intake Note: Patient follow up for Colonoscopy results. Patient denies any GI issues. Draw Furnace Tender Required: No Accompanied by: Self / Same As Patient Allergies No Known Allergies Allergy (Verified 05/21/23 07:38) Medication List - Last Reconciled 05/21/23 by Marium Forde PA-C No Known Home Meds HPI HPI Comments History of Present Illness Details A 52 y/of/u after index screening with polypectomy- No GI complaints Appetite is good- No N/V/D- abdominal PFSH Medical History (Updated 05/21/23 @ 07:58 by Marium Forde PA-C) Alcohol dependence PVC (premature ventricular contraction) SVT (supraventricular tachycardia) Surgical History History of varicocele Hx of colonoscopy Right toe amputee Family History Father Lung cancer Mother Osteoporosis Maternal Grandmother Afib Paternal Uncle No problems noted. 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 Hearing needs: No Vision needs: No Review of Systems Const All systems reviewed & are unremarkable except as noted in HPI and below Card Denies chest pain and Denies dyspnea Resp Denies dyspnea GI Denies abdominal pain Physical Exam Vital Signs: Last Vital Signs Pulse 104 H 05/21/23 07:40 BP 113/79 05/21/23 07:40 BMI result Body Mass Index 21.5 Const General: cooperative, healthy appearing, comfortable and no acute distress Orientation/consciousness: patient oriented x3 Limitations: no limitations Eyes Sclerae: sclerae normal Resp Effort & Inspection: normal respiratory effort and able to speak in complete sentences Skin General skin exam: no rashes or lesions noted Neuro General: patient oriented x3 Extrem General: Yes full ROM Psych Appearance: grossly normal and well kempt Mental Status: mental status grossly normal Speech and movement: Normal speech and movement present and Clear speech present Affect: normal affect Attitude: cooperative Thought process: Normal thought process present Thought content: Normal thought content present Insight: Good insight present (Psych) Judgement: Good judgement present (Psych) Results Reviewed Results Reviewed: indings: Terminal Ileum- superficially intubated and appeared normal Cecum: 8 mm sessile polyp removed with cold snare Ascending Colon: normal Transverse Colon -normal Descending Colon:normal Sigmoid Colon:? normal Rectum: Retroflexion with medium sized internal hemorrhoids, grade I Anorectum - normal Colon preparation: [place] Bowel Preparation Scale Right colon; 2 Transverse colon: 2 Left colon; 3 (0 = Unprepared colon segment with mucosa not seen due to solid stool that cannot be cleared. 1 = Portion of mucosa of the colon segment seen, but other areas of the colon segment not well seen due to staining, residual stool and/or opaque liquid. 2 = Minor amount of residual staining, small fragments of stool and/or opaque liquid, but mucosa of colon segment seen well. 3 = Entire mucosa of colon segment seen well with no residual staining, small fragments of stool or opaque liquid) Impression and Post Procedure Diagnosis: polyp internal hemorrhoids Plan: High fiber diet leaflet Avoid straining at stool, epsom salts and sitz bath, anusol supps or cream Repeat Colonoscopy in 5 years due to polyp or earlier if clinically indicated MR #: [id number] ? Status: [facility] Collected: 05/08/23 Location: [facility] Received: 05/08/23 Diagnosis Colon, cecal polyp:? Tubular adenoma, likely excised; negative for high-grade dysplasia and carcinoma. Clinical History Pre-Op Dx:? Screening Post-Op Dx: Colon polyp Assessment & Plan Assessment & Plan (1) Tubular adenoma: Comment: repeat 5 years Code(s): D36.9 - Benign neoplasm, unspecified site Plan: 5 years AFDR- screen at 40 Plan Recall 5 years Patient Instructions: 5 year recall colonoscopy AFDR- screen at 42 Coding Level of Care Code Est Pt Level 3 (09176) Diagnoses Tubular adenoma D36.9 Time Spent (min) 20
[2023-05-21 07:40] VITALS: BP 113/79; PULSE 104; BMI 21.5
== END 2023-05-21 10:35 | disposition home or self-care (01) ==
PROVIDERS: PCP Internal Medicine; Visit Provider Physician Assistant
DX: D36.9 Benign neoplasm, unspecified site (principal)
CPT/HCPCS: 99213

== ENCOUNTER → 2023-05-21 07:20 | Outpatient (BNVA) | payer BC, SELFPAY | PROVIDERS: PCP Internal Medicine; Visit Provider Physician Assistant ==

== ENCOUNTER 2023-11-16 09:50 | Outpatient (AMB) | payer BC, SELFPAY ==
[2023-11-16 09:54] VITALS: BP 136/78; PULSE 74; O2SAT 98; BMI 21.9
--- NOTE | 2023-11-16 09:54 | MHC.PC.OV ---
Vital Signs 11/16/23 09:54 Height 6 ft 4 in Weight 180 lb 2 oz BMI 21.9 BP 136/78 Blood Pressure Location Rt brachial Position Sitting Pulse 74 Pulse Source Pulse Oximeter Pulse Oximetry (%) 98 Oxygen Delivery Method Room Air Intake Visit Reasons: Annual PE Allergies No Known Allergies Allergy (Verified 11/16/23 09:54) Medication List - Last Reconciled 11/16/23 by Deshawn Cam MD No Known Home Meds Tobacco use date assessed: 11/16/23 Dental Screening Dental Screen Date: 11/16/23 Did you have a dental visit in the last 12 months?: Yes Did you have a dental problem in the last 6 months where you did not have access to dental care?: No Was dental information given to patient?: Patient has dentist HPI Annual PE HPI Details Patient is a 53-year-old male, came in today for physical exam Colonoscopy was last year, next 1 will be in 5 years tubular adenoma was found Patient has seen Dr. Saucedo, cardiac evaluation was done and he was told to come back in 2 years for follow-up Patient continued to smoke less than 1 pack per day now, and has been smoking for a while Patient was instructed to stop as soon as possible On examination I feel that his thyroid gland is slightly enlarged, I have ordered ultrasound thyroid to further evaluate And we will also and TSH to his labs Last time he had labs her CRP level was elevated we will be rechecking that [facility] Medical History Alcohol dependence PVC (premature ventricular contraction) SVT (supraventricular tachycardia) Surgical History Hx of colonoscopy History of varicocele Right toe amputee Family History Father Lung cancer Mother Osteoporosis Maternal Grandmother Afib Paternal Uncle No problems noted. 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 How often do you have a drink containing alcohol?: Monthly or less 2. How many drinks containing alcohol do you have on a typical day when you are drinking?: 1 or 2 3. How often do you have six or more drinks on one occasion?: Never Total Score: 1 Score Reviewed/Action Taken: No JUANITA-7 AMB Questionnaire JUANITA-7 Date JUANITA - 7 assessed: 11/03/22 Source: Developed by Drs. Patrick Hernandez, Julieta Gillespie, Selwyn Goldberg and colleagues, with an educational tian from [employer]. Review of Systems Const Denies chills, Denies fever(s) and Denies headache(s) Eyes Denies blurry vision ENT Denies headache(s), Denies nasal discharge, Denies nasal obstruction, Denies odynophagia and Denies sinus pain Card Denies chest pain at rest and Denies chest pain with activity Resp Denies cough and Denies hemoptysis GI Denies diarrhea, Denies odynophagia, Denies vomiting and Denies hematemesis Reports as per HPI Musc Denies abnormal gait Skin/Breast Reports as per HPI Neuro Denies Neuro-related abnormal movements, Denies Abnormal speech present, Denies abnormal gait, Denies headache(s) and Denies Sensory deficit (Neuro) Psych Denies mood swings and Denies paranoia Endo Reports as per HPI Woodrow/Lymph Reports as per HPI Aller/Immun Reports as per HPI Physical exam (Primary Care) Vital Signs: Last Vital Signs Pulse 74 11/16/23 09:54 BP 136/78 11/16/23 09:54 Pulse Ox 98 11/16/23 09:54 Oxygen Delivery Method Room Air 11/16/23 09:54 BMI result Body Mass Index 21.9 Tobacco/Smoking Status: Tobacco use Status Tobacco use date assessed 11/16/23 11/16/23 09:56 Patient Tobacco Use Status Current everyday Tobacco 11/16/23 09:56 Tobacco use type Cigarette 11/16/23 09:56 e-Cigarette/Vaping Use Never Used 11/16/23 09:56 Are you ready to quit: No Tobacco cessation counseling provided: Yes Relapse Prevention: discussed the importance of a supportive environment CPT code: 62591 - 4-10 Minutes Thrive Assessment: Date of Thrive Assessment Date Thrive assessed 11/03/22 11/16/23 09:56 Const General: cooperative, comfortable and no acute distress Orientation/consciousness: patient oriented x3 HENMT Head: Yes normocephalic and Yes atraumatic Eyes General: appearance normal, both eyes and all related structures Pupils: Equal, round and reactive pupils present EOM: EOMs intact bilaterally Neck Other: Thyroid gland slightly large both sides Neck: Yes supple and No lymphadenopathy Chest Breast/axilla palpation: normal palpation of the breasts Resp Effort & Inspection: normal respiratory effort and able to speak in complete sentences Auscultation: clear to auscultation bilaterally Cardio Heart sounds: S1 normal heart sound present and S2 normal heart sound present GI Palpation (GI): Soft to palpation and nontender Auscultation: normal bowel sounds General: Yes no CVA tenderness Back/Spine/Pelvis Back: no CVA tenderness Skin General skin exam: elasticity normal and turgor normal Neuro General: patient oriented x3 and gait normal Cranial nerves: Yes Equal, round and reactive pupils present Speech: No Abnormal speech present Sensory Exam: No Sensory deficit (Neuro) Coordination: tandem gait normal and Romberg test negative Extrem General: Yes normal exam except as noted and No edema Assessment and Plan Assessment & Plan (1) Encounter for general adult medical examination with abnormal findings: Code(s): Z00.01 - Encounter for general adult medical examination with abnormal findings (2) Tobacco abuse: Code(s): Z72.0 - Tobacco use (3) Thyromegaly: Code(s): E01.0 - Iodine-deficiency related diffuse (endemic) goiter (4) Elevated C-reactive protein (CRP): Code(s): R79.82 - Elevated C-reactive protein (CRP) (5) Tubular adenoma: Comment: repeat 5 years Code(s): D36.9 - Benign neoplasm, unspecified site (6) SVT (supraventricular tachycardia): Code(s): I47.1 - Supraventricular tachycardia (7) Premature ventricular contractions (PVCs) (VPCs): Code(s): I49.3 - Ventricular premature depolarization Plan Patient is a 53-year-old male, came in today for physical exam Colonoscopy was last year, next 1 will be in 5 years tubular adenoma was found Patient has seen Dr. Saucedo, cardiac evaluation was done and he was told to come back in 2 years for follow-up Patient continued to smoke less than 1 pack per day now, and has been smoking for a while Patient was instructed to stop as soon as possible On examination I feel that his thyroid gland is slightly enlarged, I have ordered ultrasound thyroid to further evaluate And we will also and TSH to his labs Last time he had labs her CRP level was elevated we will be rechecking that Orders: Orders Comprehensive Met. Panel Today E01.0 - Iodine-deficiency related diffuse (endemic) goiter, R79.82 - Elevated C-reactive protein (CRP), Z00.01 - Encounter for general adult medical examination with abnormal findings, Z72.0 - Tobacco use LDL Cholesterol Direct Today E01.0 - Iodine-deficiency related diffuse (endemic) goiter, R79.82 - Elevated C-reactive protein (CRP), Z00.01 - Encounter for general adult medical examination with abnormal findings, Z72.0 - Tobacco use C Reactive Protein Today E01.0 - Iodine-deficiency related diffuse (endemic) goiter, R79.82 - Elevated C-reactive protein (CRP), Z00.01 - Encounter for general adult medical examination with abnormal findings, Z72.0 - Tobacco use TSH reflex Free T4 Today E01.0 - Iodine-deficiency related diffuse (endemic) goiter, R79.82 - Elevated C-reactive protein (CRP), Z00.01 - Encounter for general adult medical examination with abnormal findings, Z72.0 - Tobacco use US thyroid Today E01.0 - Iodine-deficiency related diffuse (endemic) goiter Coding Level of Care Code Est Pt Prev Care 40-64y(60377) Diagnoses Encounter for general adult medical examination with abnormal findings Z00.01 Tobacco abuse Z72.0 Thyromegaly E01.0 Elevated C-reactive protein (CRP) R79.82 Tubular adenoma D36.9 SVT (supraventricular tachycardia) I47.1 Premature ventricular contractions (PVCs) (VPCs) I49.3 Additional Codes Vital Signs *Quality* - CPT code: 99950 - 4-10 Minutes ([id number])
== END 2023-11-16 10:13 | disposition home or self-care (01) ==
PROVIDERS: Visit Provider Internal Medicine
DX: Z00.01 Encounter for general adult medical examination with abnormal findings (principal); I47.19 Other supraventricular tachycardia; Z72.0 Tobacco use; E01.0 Iodine-deficiency related diffuse (endemic) goiter; R79.82 Elevated C-reactive protein (CRP); D36.9 Benign neoplasm, unspecified site; I49.3 Ventricular premature depolarization
CPT/HCPCS: 99396

== ENCOUNTER 2023-11-16 10:16 | Outpatient (REF) | payer BC, SELFPAY ==
[2023-11-16 13:57] LABS: Alanine Aminotransferase 20 U/L (0-40); Albumin Level 4.5 g/dL (3.5-5.0); Alkaline Phosphatase 66 U/L (39-117); Anion Gap 12 (12-20); Aspartate Amino Transferase 20 U/L (5-37); Bilirubin Total 0.6 mg/dL (0.0-1.0); Blood Urea Nitrogen 8 mg/dL (9-16); C Reactive Protein < 0.04 mg/dL (< or = 0.50); Calcium 9.6 mg/dL (8.4-10.2); Carbon Dioxide 28 mmol/L (22-29); Chloride 102 mmol/L (96-108); Estimated Glomerular Filt Rate > 60; Glucose Random 103 mg/dL (60-115); Potassium 4.2 mmol/L (3.3-5.1); Sodium 138 mmol/L (135-145); Total Protein 7.3 g/dL (6.5-8.0)
[2023-11-17 19:55] LABS: LDL Cholesterol Direct 43 mg/dL (<100)
== END 2023-11-16 10:17 | disposition home or self-care (01) ==
LOC: HO.HMGCLDS 10:16
PROVIDERS: PCP Internal Medicine; Visit Provider Internal Medicine
DX: Z00.01 Encounter for general adult medical examination with abnormal findings (principal); E01.0 Iodine-deficiency related diffuse (endemic) goiter; R79.82 Elevated C-reactive protein (CRP); Z72.0 Tobacco use
CPT/HCPCS: 36415; 80053; 83721; 84443; 86140

== ENCOUNTER 2023-12-03 08:48 | Outpatient (REF) | payer BC, SELFPAY ==
--- NOTE | ~2023-12-03 | US_ITS ---
EXAMINATION: US THYROID CLINICAL INFORMATION: Iodine-deficiency related diffuse (endemic) goiter. COMPARISON: CT soft tissue neck with contrast 10/17/2022. TECHNIQUE: Linear transducer mullen-scale and color Doppler examination with attention to the region of the thyroid. FINDINGS: SIZE: Measurements of the thyroid lobes and nodules are given in sagittal, anteroposterior and transverse dimensions respectively. Right Thyroid Lobe: 6.2 x 1.7 x 2.0 cm, volume 11.0 mL. Parenchyma: The gland echotexture is homogeneous. Thyroid vascularity is mildly increased. Left Thyroid Lobe: 6.3 x 1.3 x 1.9 cm, volume 8.2 mL. Parenchyma: The gland echotexture is homogeneous. Thyroid vascularity is mildly increased. Isthmus: 0.3 cm in maximum AP dimension. Estimated total number of nodules greater than or equal to 1 cm: 0. [employer] nodules are described as follows: 1. Location: Left superior/mid. Size: 0.8 x 0.6 x 0.8 cm, volume 0.19 mL. Nodule characteristics: Composition: Solid/almost completely solid (2). Echogenicity: Isoechoic (1). Shape: Not taller than wide (0). Margins: Smooth (0). Echogenic Foci: Peripheral calcifications (2). ACR TI-RADS total points: 5 ACR TI-RADS category: 4 NODES: No lymphadenopathy is seen in the tissue surrounding the thyroid gland. US/US thyroid IMPRESSION: 0.8 cm left TR4 thyroid nodule. Mildly increased diffuse vascularity of the thyroid gland. ACR TI-RADS RECOMMENDATION REFERENCE: Ultrasound-guided fine-needle aspiration, followup ultrasound, no further follow up. * TR1 (0 point) and TR2 (2 points): No FNA or follow up. * TR3 (3 points): FNA if more than or equal to 2.5 cm in maximum dimension, followup ultrasound in 1, 3 and 5 years if 1.5 to 2.4 cm in maximum dimension. * TR4 (4-6 points): FNA if more than or equal to 1.5 cm in maximum dimension, followup ultrasound in 1, 2, 3 and 5 years if 1 to 1.4 cm in maximum dimension. * TR5 (more than or equal to 7 points): FNA if more than or equal to 1 cm in maximum dimension, followup ultrasound every year for 5 years if 0.5 to 0.9 cm in maximum dimension. * TR3, TR4 or TR5 nodules that are below the size threshold for followup receive no follow up.
== END 2023-12-03 08:49 | disposition home or self-care (01) ==
LOC: HO.HMGCX 08:48
PROVIDERS: PCP Internal Medicine; Visit Provider Internal Medicine
DX: E01.0 Iodine-deficiency related diffuse (endemic) goiter (principal)
CPT/HCPCS: 76536

== ENCOUNTER 2024-03-22 09:50 | Emergency (ER) | payer BC, SELFPAY ==
[2024-03-22 09:57] VITALS: BP 138/86; PULSE 100; RESP 18; TEMP 36.4; O2SAT 98; BMI 21.0
--- NOTE | 2024-03-22 10:40 | ED.GENADULT ---
HPI - General Adult General Chief complaint: General Medical Stated complaint: facial swelling Time Seen by Provider: 03/22/24 10:31 Source: patient and RN notes reviewed Mode of arrival: ambulatory Limitations: no limitations History of Present Illness ED Provider: Gladys Mosley PA-C HPI narrative: This is a 53-year-old male, with no known medical problems, who presents emergency department with complaints of gum pain x2 days. Patient states that on evening he went out to dinner and ate a tortilla chip and believes that he cut his gum. He states that since then he has had increased swelling and pain. He states that the pain radiates into his jaw. He denies any fevers or chills. He states that he went to the dentist 2 weeks ago. No other complaints or concerns at this time. MD complaint: Gum pain Onset (ago): day(s) Severity: moderate Quality: aching Pain Consistency: constant Relieving factors: none Exacerbating factors: none Associated symptoms: denies other symptoms Treatments prior to arrival: NSAID Related Data Previous Rx's ?Medication ?Instructions ?Recorded amoxicillin 875 mg-potassium 1 tab PO BID 7 days #14 tabs 03/22/24 clavulanate 125 mg tablet Allergies Allergy/AdvReac Type Severity Reaction Status Date / Time No Known Allergies Allergy Verified 03/22/24 10:00 Review of Systems Review of Systems: Yes all other systems are reviewed and are negative Constitutional: Constitutional: Reports as per HPI [facility] Past Medical History Medical History Alcohol dependence PVC (premature ventricular contraction) SVT (supraventricular tachycardia) Surgical History Hx of colonoscopy History of varicocele Right toe amputee Family History Family History Father Lung cancer Mother Osteoporosis Maternal Grandmother Afib Paternal Uncle No problems noted. 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- Cognitive needs: No Hearing needs: No Vision needs: No Physical Exam ED Vital Signs: Vital Signs - 24 hr 03/22/24 09:57 03/22/24 10:42 Temperature 97.6 F 97.6 F Pulse Rate 100 100 Respiratory Rate 18 18 Blood Pressure 138/86 138/86 Pulse Oximetry 98 98 Oxygen Delivery Method Room Air Room Air BMI result Body Mass Index 21.0 Const General: cooperative, comfortable and no acute distress Orientation/consciousness: patient oriented x3 Limitations: no limitations HENMT Other: See below Head: Yes normal to inspection, Yes normocephalic and Yes atraumatic Ears: hearing grossly normal bilaterally General nose exam: Normal external nose present Face and sinus: Yes normal facial exam Mouth: Normal oral and palatal mucosa present, oropharynx normal and moist mucous membranes Teeth image: 1. There is active purulent drainage with dental abscess noted just inferior to teeth 22 through 24. Fluctuance, and erythema noted. Yossi nontender. No other active abscess noted. Throat: Yes posterior oropharynx normal Eyes General: appearance normal, both eyes and all related structures Eyelids: Yes eyelids normal Conjunctivae: conjunctivae normal Sclerae: sclerae normal Pupils: Equal, round and reactive pupils present EOM: EOMs intact bilaterally Neck Neck: Yes normal visual inspection, Yes full ROM and Yes no lymphadenopathy Lymphatic: no lymphadenopathy noted Chest Chest palpation & inspection: normal inspection of the chest Resp Effort & Inspection: normal respiratory effort and able to speak in complete sentences Auscultation: clear to auscultation bilaterally, no crackles, no rales, no rhonchi and no wheezes Cardio Rate: regular rate Rhythm: regular rhythm Heart sounds: S1 normal heart sound present and S2 normal heart sound present GI Inspection: Yes normal to inspection Skin General skin exam: no rashes or lesions noted Trauma: no lacerations or abrasions Wounds: no wounds Neuro General: patient oriented x3 and moves all extremities Cranial nerves: Yes Equal, round and reactive pupils present Extrem General: Yes normal to inspection Right upper extremity: normal to inspection Left upper extremity: normal to inspection Right lower extremity: normal to inspection Left lower extremity: normal to inspection Medical Decision Making Medical Decision Making [facility] Narrative: This is a 53-year-old male, with no known medical problems, who presents emergency department with complaints of lower dental pain x2 days. Patient states that he ate a chip 2 days ago and cut his gumline. He states that since then he has had increased pain to his lower gumline and jaw. On arrival, vital signs within normal limits. On physical examination, patient has a actively draining dental abscess noted, with foul, purulent drainage noted. I was able to continue draining this region without any interruption using instrumentation. Patient tolerated procedure well. Discussed with patient the importance of finishing full course of antibiotics and advised to call dentist on Sunday. He understands and agrees with plan. Given strict return precautions. He has no tenderness to palpation along his jaw therefore further diagnostic imaging not warranted at this time. Patient stable for discharge. Differential Diagnosis Differential Diagnoses: The differential diagnosis associated with the presentation includes Dental abscess, dental decay, dental fracture Discharge Plan Discharge Clinical Impression: Abscess, dental Patient Disposition: Home, Self-Care Instructions: Dental Abscess (ED) Additional Instructions: You were seen in the emergency department due to lower dental pain and swelling. Finish the entire course of antibiotics even if you are feeling better. You need to follow-up with a dentist, call on Sunday to make an appointment. Alternate between ibuprofen and Tylenol as needed for pain. If any new or worsening symptoms occur including but not limited to worsening pain, swelling, fevers, chills, please return for re-evaluation. Prescriptions: New amoxicillin-pot clavulanate 875-125 mg tablet 1 tab PO BID 7 Days Qty: 14 0RF Interventions: ED Discharge Assessment Last Done: 03/22/24 10:42 Discharge Date/Time: 03/22/24 10:43 Print Language: Welsh
[2024-03-22 10:42] VITALS: BP 138/86; PULSE 100; RESP 18; TEMP 36.4; O2SAT 98
== END 2024-03-22 10:43 | disposition home or self-care (01) ==
PROVIDERS: Emergency Provider Emergency Medicine; PCP Internal Medicine
DX: K04.7 Periapical abscess without sinus (principal); K13.79 Other lesions of oral mucosa; F17.210 Nicotine dependence, cigarettes, uncomplicated
CPT/HCPCS: 99282; 99283

== ENCOUNTER 2024-11-19 08:54 | Outpatient (AMB) | payer BC, SELFPAY ==
[2024-11-19 08:57] VITALS: BP 140/80; PULSE 63; O2SAT 98; BMI 22.3
--- NOTE | 2024-11-19 08:57 | A.OFFPC_ITS ---
Vital Signs 11/19/24 08:57 Height 6 ft 4 in Weight 183 lb 4 oz BMI 22.3 BP 140/80 H Blood Pressure Location Lt brachial Position Sitting Pulse 63 Pulse Source Pulse Oximeter Pulse Oximetry (%) 98 Oxygen Delivery Method Room Air Intake Visit Reasons: Annual PE Allergies No Known Allergies Allergy (Verified 11/19/24 09:02) Medication List - Last Reconciled 11/19/24 by Deshawn Cam MD No Known Home Meds Tobacco use date assessed: 11/19/24 Dental Screening Dental Screen Date: 11/19/24 Did you have a dental visit in the last 12 months?: Yes Did you have a dental problem in the last 6 months where you did not have access to dental care?: No Was dental information given to patient?: Patient has dentist HPI Annual PE HPI Details Patient is a 54-year-old male, came in today for physical exam Colonoscopy was 2022, next 1 will be in 2027 tubular adenoma was found Patient has seen Dr. Saucedo, cardiac evaluation was done and he was told to come back in 2 years for follow-up Patient continued to smoke less than 1/2 pack per day , and has been smoking for a while Patient was instructed to stop as soon as possible - Prior consultations have indicated per yury elevated blood pressure over the past year. - Previous imaging noted a left-sided th yroid nodule of 0.8 cm with overall gland enlargement Health Maintenance - Blood pressure monitoring at home iqra mmended; blood pressure monitor suggested. - Advised repeat thyroid ultrasound to r eevaluate the left-sided nodule. - Encouraged reduction of smoking with a focus on cutting down by two cigarettes per day in the upcoming month. - Plan to perform fasting blood work; alfredo kuhn instructed on fasting guidelines. Employment - Smoking reduced due to workplace smoki ng restrictions and high cost, which influences smoking habits. Diagnostic results - Labs (from previous visits): Electroly tae normal, kidney function normal, calcium normal, liver enzymes normal, cholesterol good, thyroid normal. - Imaging: Previous thyroid ultrasound r evealed a left-sided 0.8 cm nodule; hypervascularity, follow-up is planned. Patient Instructions - Obtain a blood pressure monitor for ho me use; keep a log of readings. - Schedule a thyroid ultrasound as instr ucted. - Attempt to reduce smoking by two cigar ettes per day over the next month. 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 - Maintain low salt diet to support bloo d pressure management. Review of Systems. - General: No fever no chills - Neurological: No headaches no dizzin ess - Ear nose throat: No sore throat no hearing difficulty no ear pain - Cardiovascular: No syncope, no chest pain, no palpitations - Gastrointestinal: No nausea vomiting or diarrhea - Endocrine: No polyuria polydipsia no heat intolerance - Genitourinary: No dysuria - Skin: No new complaints Physical Exam General: Cooperative, healthy appearing, comfortable, no acute distress Orientation: Patient oriented x3 Limitations: None Head: Normal to inspection Ears: Within normal limit visually Nose: Normal external nose present Face and sinus: Normal facial exam Eyes: Appearance normal, extraocular movement intact pupils reactive Neck: Normal visual inspection and supple, thyroid palpable without any pain Respiratory: Normal respiratory effort and able to speak in complete sentences. Clear to auscultation, no stridor Cardiovascular: S1 and S2, blood pressure 140/80, indicating hypertension GI: Normal to inspection. Soft to palpation and nontender Skin: Turgor normal, no acute findings Neuro: Patient oriented x3, motor sensory intact, balance intact, tandem pass Extremities: Normal to inspection [facility] Medical History Alcohol dependence PVC (premature ventricular contraction) SVT (supraventricular tachycardia) Surgical History Hx of colonoscopy History of varicocele Right toe amputee Family History Father Lung cancer Mother Osteoporosis Maternal Grandmother Afib Paternal Uncle No problems noted. 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 1. Little interest or pleasure in doing things: not at all 2. Feeling down, depressed, or hopeless: not at all 3. Trouble falling or staying asleep, or sleeping too much: not at all 4. Feeling tired or having little energy: not at all 5. Poor appetite or overeating: not at all 6. Feeling bad about yourself - or that you are a failure or have let yourself or your family down: not at all 7. Trouble concentrating on things, such as reading the newspaper or watching television: not at all 8. Moving or speaking so slowly that other people could have noticed. Or the opposite - being so fidgety or restless that you have been moving around a lot more than usual: not at all 9. Thoughts that you would be better off or of hurting yourself in some way: not at all Total score: 0 Depression Screening Interpretation: Negative Depression Screening Done: Yes 66336 - PHQ-9 Billing: Yes Source: Developed by Drs. Patrick Hernandez, Julieta Gillespie, Selwyn Goldberg and colleagues, with an educational tian from [employer]. Thrive Questionnaire Date Thrive assessed: 11/19/24 I am a: Patient What is your living situation today?: I have a steady place to live Within the past 12 months, did the food you bought not last and you didn't have the money to get more?: Never true Within the past 12 months, did you worry whether your food would run out before you got money to buy more?: Never true Do you have trouble paying for medicines?: No Do you have trouble getting transportation to medical appointments?: No Do you have trouble paying your heating and electricity bill?: No Do you have trouble taking care of your child, family member or friend?: No Do you have trouble with day-to-day activities such as bathing, preparing meals, shopping, managing finances, etc.?: No Are you currently unemployed and looking for a job?: No Are you interested in more education?: No Please select the resources that you would like help with: None Currently or been in a relationship where the following occur: No concerns reported THRIVE Score: 0 AUDIT C Alcohol Use Questionnaire (AUDIT-C) 1. How often do you have a drink containing alcohol?: 2-3 times a week 2. How many drinks containing alcohol do you have on a typical day when you are drinking?: 1 or 2 3. How often do you have six or more drinks on one occasion?: Less than monthly Total Score: 4 Score Reviewed/Action Taken: Yes JUANITA-7 AMB Questionnaire JUANITA-7 Date JUANITA - 7 assessed: 11/19/24 Feeling nervous, anxious, or on edge: 0 = Not at all Not being able to stop or control worryin = Not at all Worrying too much about different things: 0 = Not at all Trouble relaxin = Not at all Being so restless that it is hard to sit still: 0 = Not at all Becoming easily annoyed or irritable: 0 = Not at all Feeling afraid as if something awful might happen: 0 = Not at all Total JUANITA-7 score (0-4 normal; 5-9 mild; 10-14 moderate; 15-21 severe): 0 Source: Developed by Drs. Patrick Hernandez, Julieta Gillespie, Selwyn Goldberg and colleagues, with an educational tian from [employer]. JUANITA-7 Assessment Billing JUANITA-7 Assessment Tool: JUANITA-7 Assessment 19963 Physical exam (Primary Care) Vital Signs: Last Vital Signs Pulse 63 11/19/24 08:57 BP 140/80 H 11/19/24 08:57 Pulse Ox 98 11/19/24 08:57 Oxygen Delivery Method Room Air 11/19/24 08:57 BMI result Body Mass Index 22.3 Tobacco/Smoking Status: Tobacco use Status Tobacco use date assessed 11/19/24 11/19/24 09:02 Patient Tobacco Use Status Current everyday Tobacco 11/19/24 09:02 Tobacco use type Cigarette 11/19/24 09:02 e-Cigarette/Vaping Use Never Used 11/19/24 09:02 PHQ-9: PHQ-9 Score PHQ-9: Total score 0 11/19/24 09:02 Depression Screening Interpretation: Negative Thrive Assessment: Date of Thrive Assessment Date Thrive assessed 11/19/24 11/19/24 09:02 Currently or been in a relationship where the following occur: No concerns reported Coding Level of Care Code Est Pt Level 4 (65093) Est Pt Prev Care 40-64y(91866) Diagnoses Encounter for general adult medical examination with abnormal findings Z00.01 Thyromegaly E01.0 Tobacco abuse Z72.0 Elevated blood pressure reading R03.0 Additional Codes JUANITA-7 Assessment Billing - JUANITA-7 Assessment Tool: JUANITA-7 Assessment 50279 ([id number]) PHQ-9 - 41716 - PHQ-9 Billing: Yes ([id number]) Assessment & Plan Assessment & Plan (1) Encounter for general adult medical examination with abnormal findings: Code(s): Z00.01 - Encounter for general adult medical examination with abnormal findings Category: Medical (2) Thyromegaly: Code(s): E01.0 - Iodine-deficiency related diffuse (endemic) goiter Category: Medical (3) Tobacco abuse: Code(s): Z72.0 - Tobacco use Category: Medical (4) Elevated blood pressure reading: Code(s): R03.0 - Elevated blood-pressure reading, without diagnosis of hypertension Category: Medical Plan Patient is a 54-year-old male, came in today for physical exam Colonoscopy was 2022, next 1 will be in 2027 tubular adenoma was found Patient has seen Dr. Saucedo, cardiac evaluation was done and he was told to come back in 2 years for follow-up Patient continued to smoke less than 1/2 pack per day , and has been smoking for a while Patient was instructed to stop as soon as possible - Prior consultations have indicated persistent elevated blood pressure over the past year. - Previous imaging noted a left-sided thyroid nodule of 0.8 cm with overall gland enlargement Health Maintenance - Blood pressure monitoring at home recommended; blood pressure monitor suggested. - Advised repeat thyroid ultrasound to reevaluate the left-sided nodule. - Encouraged reduction of smoking with a focus on cutting down by two cigarettes per day in the upcoming month. - Plan to perform fasting blood work; patient instructed on fasting guidelines. Employment - Smoking reduced due to workplace smoking restrictions and high cost, which influences smoking habits. Diagnostic results - Labs (from previous visits): Electrolytes normal, kidney function normal, calcium normal, liver enzymes normal, cholesterol good, thyroid normal. - Imaging: Previous thyroid ultrasound revealed a left-sided 0.8 cm nodule; hypervascularity, follow-up is planned. Patient Instructions - Obtain a blood pressure monitor for home use; keep a log of readings. - Schedule a thyroid ultrasound as instructed. - Attempt to reduce smoking by two cigarettes per day over the next month. 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 - Maintain low salt diet to support blood pressure management. Return for follow-up in 4 weeks for blood pressure, thyroid ultrasound, smoking, labs Orders: Orders Complete Blood Count Auto Diff Today E01.0 - Iodine-deficiency related diffuse (endemic) goiter, R03.0 - Elevated blood-pressure reading, without diagnosis of hypertension, Z00.01 - Encounter for general adult medical examination with abnormal findings, Z72.0 - Tobacco use Comprehensive [place]. Panel Fast Today E01.0 - Iodine-deficiency related diffuse (endemic) goiter, R03.0 - Elevated blood-pressure reading, without diagnosis of hypertension, Z00.01 - Encounter for general adult medical examination with abnormal findings, Z72.0 - Tobacco use Lipid Panel Today E01.0 - Iodine-deficiency related diffuse (endemic) goiter, R03.0 - Elevated blood-pressure reading, without diagnosis of hypertension, Z00.01 - Encounter for general adult medical examination with abnormal findings, Z72.0 - Tobacco use Vitamin B12 Today E01.0 - Iodine-deficiency related diffuse (endemic) goiter, R03.0 - Elevated blood-pressure reading, without diagnosis of hypertension, Z00.01 - Encounter for general adult medical examination with abnormal findings, Z72.0 - Tobacco use US thyroid Today E01.0 - Iodine-deficiency related diffuse (endemic) goiter Vitamin D 25-OH (D2 and D3) Today E01.0 - Iodine-deficiency related diffuse (endemic) goiter, R03.0 - Elevated blood-pressure reading, without diagnosis of hypertension, Z00.01 - Encounter for general adult medical examination with abnormal findings, Z72.0 - Tobacco use TSH reflex Free T4 Today E01.0 - Iodine-deficiency related diffuse (endemic) goiter, R03.0 - Elevated blood-pressure reading, without diagnosis of hypertension, Z00.01 - Encounter for general adult medical examination with abnormal findings, Z72.0 - Tobacco use UA CC w/rflx Micro + Cult Today E01.0 - Iodine-deficiency related diffuse (endemic) goiter, R03.0 - Elevated blood-pressure reading, without diagnosis of hypertension, Z00.01 - Encounter for general adult medical examination with abnormal findings, Z72.0 - Tobacco use
== END 2024-11-19 09:21 | disposition home or self-care (01) ==
PROVIDERS: PCP Internal Medicine; Visit Provider Internal Medicine
DX: Z00.01 Encounter for general adult medical examination with abnormal findings (principal); E01.0 Iodine-deficiency related diffuse (endemic) goiter; Z72.0 Tobacco use; R03.0 Elevated blood-pressure reading, without diagnosis of hypertension

== ENCOUNTER → 2024-11-19 08:54 | Outpatient (BNVA) | payer BC, SELFPAY | PROVIDERS: PCP Internal Medicine; Visit Provider Internal Medicine | DX: Z00.01 Encounter for general adult medical examination with abnormal findings (principal); E01.0 Iodine-deficiency related diffuse (endemic) goiter; R03.0 Elevated blood-pressure reading, without diagnosis of hypertension; Z72.0 Tobacco use | CPT/HCPCS: 96127 ==

== ENCOUNTER 2024-11-26 06:00 | Outpatient (REF) | payer BC, SELFPAY ==
[2024-11-26 06:16] LABS: MANUAL DIFF FLAG NO
[2024-11-26 07:03] LABS: Basophils Absolute Auto 0.1 X10*3/uL (0.0-0.2); Basophils Percent Auto 1.6 % (0-2); Eosinophils Absolute Auto 0.2 X10*3/uL (0.0-0.4); Eosinophils Percent Auto 2.3 % (0-4); Hematocrit 47.6 % (42.0-52.0); Hemoglobin 16.3 g/dl (14.0-18.0); Imm Gran Abs Auto 0.01 X10*3/uL (0.00-0.03); Imm Gran Pct Auto 0.2 % (0.0-0.4); Lymphocytes Absolute Auto 2.3 X10*3/uL (1.2-4.9); Lymphocytes Percent Auto 34.9 % (20-40); Mean Corpuscular HGB Conc 34.2 g/dl (31.0-36.0); Mean Corpuscular Hemoglobin 32.5 pg (27.0-33.0); Mean Corpuscular Volume 94.8 fL (80.0-98.0); Monocytes Absolute Auto 0.8 X10*3/uL (0.1-1.2); Neutrophils Absolute Auto 3.2 x10*3/uL (2.0-8.3); Platelet Count 294 X10*3/uL (160-400); Red Blood Count 5.02 X10*6/uL (4.60-5.80); White Blood Count 6.4 X10*3/uL (4.8-10.8)
[2024-11-26 07:35] LABS: Alanine Aminotransferase 34 U/L (0-40); Albumin Level 4.4 g/dL (3.5-5.0); Alkaline Phosphatase 82 U/L (39-117); Anion Gap 14 (12-20); Aspartate Amino Transferase 30 U/L (5-37); Bilirubin Total 0.4 mg/dL (0.0-1.0); Blood Urea Nitrogen 18 mg/dL (9-16); Calcium 9.3 mg/dL (8.4-10.2); Carbon Dioxide 22 mmol/L (22-29); Chloride 106 mmol/L (96-108); Cholesterol 194 mg/dL (<200); Estimated Glomerular Filt Rate > 60; Glucose Fasting 100 mg/dL (60-99); HDL Cholesterol 115 mg/dL (>40); LDL Cholesterol Calculated 71 mg/dL (<100); Potassium 5.1 mmol/L (3.3-5.1); Sodium 137 mmol/L (135-145); Total Protein 7.8 g/dL (6.5-8.0); Triglycerides 44 mg/dL (<150)
[2024-11-26 07:58] LABS: Vitamin B12 266 pg/mL (200-900)
[2024-11-26 08:00] LABS: Appearance Urine Clear; Color Urine Yellow; Glucose Urine UA Negative (Negative); Leukocyte Esterase Urine Negative (Negative); Nitrite Urine Negative (Negative); Specific Gravity - Urine 1.015 (1.005-1.025); Urine Blood Negative (Negative); Urine Ketones Negative (Negative); Urine Protein Negative (Neg-Trace)
[2024-11-26 08:07] LABS: TSH reflex Free T4 0.81 uIU/mL (0.32-4.0)
[2024-12-01 16:18] LABS: Vitamin D 25-OH, D2 <4 ng/mL; Vitamin D 25-OH, D3 6 ng/mL; Vitamin D 25-OH, Total 6 ng/mL (30-100)
== END 2024-11-26 06:01 | disposition home or self-care (01) ==
LOC: HO.LAB 06:00
PROVIDERS: PCP Internal Medicine; Visit Provider Internal Medicine
DX: Z00.01 Encounter for general adult medical examination with abnormal findings (principal); E01.0 Iodine-deficiency related diffuse (endemic) goiter; R03.0 Elevated blood-pressure reading, without diagnosis of hypertension; Z72.0 Tobacco use; Z13.6 Encounter for screening for cardiovascular disorders
CPT/HCPCS: 36415; 80053; 80061; 81003; 82306; 82607; 84443; 85025

== ENCOUNTER 2024-12-03 13:44 | Outpatient (REF) | payer BC, SELFPAY ==
--- NOTE | ~2024-12-03 | US_ITS ---
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 COMPARISON: Comparison is made with the prior examination dated 12/03/2023. FINDINGS: SIZE: The right thyroid lobe measures 6.2 x 1.5 x 1.5 cm. The left thyroid lobe measures 6.2 x 1.5 x 2.1 cm. The isthmus measures 3 mm. FLOW: Flow to the gland is mildly increased. ECHOGENICITY: The echotexture of the gland is homogeneous. NODULES: Again seen is a single left thyroid nodule with imaging characteristics as follows: Nodule #: 1 Location: Mid to upper pole on the left measuring 8 x 6 x 8 mm (previously 8 x 6 x 8 mm). Shape: Wider than tall (0 points) Margins: Smooth (0 points) Echotexture: Isoechoic (1 point) Composition: Mostly solid (2 points) Calcifications: Rim calcification (2 points) Total points: 5 TIRADS: TR4: Moderately suspicious. US/US thyroid IMPRESSION: Stable subcentimeter left thyroid nodule as described. ACR TI-RADS Guidelines TR1: Benign, No follow-up or biopsy required TR2: Not Suspicious, No biopsy indicated TR3: Mildly Suspicious, FNA if >= 2.5 cm, Follow if >= 1.5 cm TR4: Moderately Suspicious, FNA if >= 1.5 cm, Follow if >= 1.0 cm TR5: Highly Suspicious, FNA if >= 1.0 cm, Follow if >= 0.5 cm Electronically signed by: Patrick Clinton MD 12/04/2024 09:00 AM EDT
== END 2024-12-03 13:45 | disposition home or self-care (01) ==
LOC: HO.HMGCX 13:44
PROVIDERS: PCP Internal Medicine; Visit Provider Internal Medicine
DX: E01.0 Iodine-deficiency related diffuse (endemic) goiter (principal)
CPT/HCPCS: 76536

== ENCOUNTER → 2024-12-03 14:03 | Outpatient (BNV) | payer BC, SELFPAY | PROVIDERS: PCP Internal Medicine; Visit Provider Radiology Diagnostic Radiology | DX: E04.1 Nontoxic single thyroid nodule (principal) | CPT/HCPCS: 76536 ==

== ENCOUNTER 2024-12-17 08:45 | Outpatient (AMB) | payer BC, SELFPAY ==
[2024-12-17 08:46] VITALS: BP 142/80; PULSE 89; RESP 18; O2SAT 99; BMI 22.4
--- NOTE | 2024-12-17 08:46 | MHC.PC.OV ---
Vital Signs 12/17/24 08:46 Height 6 ft 4 in Weight 184 lb 4 oz BMI 22.4 BP 142/80 H Blood Pressure Location Rt brachial Position Sitting Respiration 18 Pulse 89 Pulse Source Pulse Oximeter Pulse Oximetry (%) 99 Oxygen Delivery Method Room Air Intake Visit Reasons: PE Allergies No Known Allergies Allergy (Verified 12/17/24 08:46) Medication List - Last Reconciled 12/17/24 by Deshawn Cam MD cholecalciferol (vitamin D3) 50 mcg (2 x 25 mcg (1,000 unit)) PO DAILY 90 days Tobacco use date assessed: 12/17/24 Dental Screening Dental Screen Date: 12/17/24 Did you have a dental visit in the last 12 months?: Yes Did you have a dental problem in the last 6 months where you did not have access to dental care?: No Was dental information given to patient?: Patient has dentist HPI PE HPI Details History The patient is a 54-year-old male presenting with hypertension: - Previous medical history includes high blood pressure, confirmed during routine visits - The patient has been monitoring blood pressure at home, mainly in the evenings, reporting differing results compared to clinic readings. - Several potential causes for elevated blood pressure were discussed, including coffee intake, with the patient having consumed five or six coffees before consultations. - Occasional tobacco use continues, estimated at half a pack daily, with a plan to reduce this amount in progress. - Lifestyle factors, including sodium and caffeine intake and stress, were recognized as potential exacerbating contributors to blood pressure management challenges. Problem List - Essential Hypertension - Tobacco Use Disorder - occasional alcohol intake Patient Instructions - Continue to monitor blood pressure regularly, especially in the mornings. - Avoid excessive salt and caffeine intake. - Try to taper coffee consumption gradually and consider switching to decaf. - Avoid stress and use relaxation techniques as needed. - Monitor for symptoms like headaches and consult if they develop. - Continue efforts to decrease smoking gradually. - Follow up with Dr. Vinson as scheduled for further evaluation and management. - Social History: Reports consuming half a pack of cigarettes daily and attempting reduction. Reports alcohol consumption as several drinks occasionally Review of system - General: No fever no chills - Neurological: No headaches no dizziness - Ear nose throat: No sore throat no hearing difficulty no ear pain - Cardiovascular: No syncope, no chest pain, no palpitations - Gastrointestinal: No nausea vomiting or diarrhea - Endocrine: No polyuria polydipsia no heat intolerance - Genitourinary: No dysuria , no blood in urine Physical Exam - General: No acute distress - HEENT: No acute findings - Neck: Supple - Respiratory system: Able to talk in full sentences, no audible wheeze - Cardiovascular: S1-S2 regular in rate and rhythm - Gastrointestinal: No pain - Extremities: No new findings - INSIDE [employer] SALES: Alert awake oriented x3 motor sensory intact - Skin: Normal turgor [facility] Medical History Alcohol dependence PVC (premature ventricular contraction) SVT (supraventricular tachycardia) Surgical History Hx of colonoscopy History of varicocele Right toe amputee Family History Father Lung cancer Mother Osteoporosis Maternal Grandmother Afib Paternal Uncle No problems noted. 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 [id number] - PHQ-9 Billing: Patient declined-do not bill Source: Developed by Drs. Patrick Hernandez, Julieta Gillespie, Selwyn Goldberg and colleagues, with an educational tian from [employer]. Thrive Questionnaire Date Thrive assessed: 12/17/24 I am a: Patient What is your living situation today?: I have a steady place to live Within the past 12 months, did the food you bought not last and you didn't have the money to get more?: Never true Within the past 12 months, did you worry whether your food would run out before you got money to buy more?: Never true Do you have trouble paying for medicines?: No Do you have trouble getting transportation to medical appointments?: No Do you have trouble paying your heating and electricity bill?: No Do you have trouble taking care of your child, family member or friend?: No Do you have trouble with day-to-day activities such as bathing, preparing meals, shopping, managing finances, etc.?: No Are you currently unemployed and looking for a job?: No Are you interested in more education?: No Please select the resources that you would like help with: None Currently or been in a relationship where the following occur: No concerns reported THRIVE Score: 0 AUDIT C Alcohol Use Questionnaire (AUDIT-C) 1. How often do you have a drink containing alcohol?: 2-3 times a week 2. How many drinks containing alcohol do you have on a typical day when you are drinking?: 1 or 2 3. How often do you have six or more drinks on one occasion?: Less than monthly Total Score: 4 Score Reviewed/Action Taken: Yes JUANITA-7 AMB Questionnaire JUANITA-7 Date JUANITA - 7 assessed: 11/19/24 Source: Developed by Drs. Patrick Hernandez, Julieta Gillespie, Selwyn Goldberg and colleagues, with an educational tian from [employer]. Physical exam (Primary Care) Vital Signs: Last Vital Signs Pulse 89 12/17/24 08:46 Resp 18 12/17/24 08:46 BP 142/80 H 12/17/24 08:46 Pulse Ox 99 12/17/24 08:46 Oxygen Delivery Method Room Air 12/17/24 08:46 BMI result Body Mass Index 22.4 Tobacco/Smoking Status: Tobacco use Status Tobacco use date assessed 12/17/24 12/17/24 08:51 Patient Tobacco Use Status Current everyday Tobacco 12/17/24 08:51 Tobacco use type Cigarette 12/17/24 08:51 e-Cigarette/Vaping Use Never Used 12/17/24 08:51 Thrive Assessment: Date of Thrive Assessment Date Thrive assessed 12/17/24 12/17/24 08:51 Currently or been in a relationship where the following occur: No concerns reported Coding Level of Care Code Est Pt Level 3 (75902) Diagnoses Elevated blood pressure reading R03.0 Tobacco abuse Z72.0 Alcoholism F10.20 SVT (supraventricular tachycardia) I47.1 Assessment & Plan Assessment & Plan (1) Elevated blood pressure reading: Code(s): R03.0 - Elevated blood-pressure reading, without diagnosis of hypertension Category: Medical (2) Tobacco abuse: Code(s): Z72.0 - Tobacco use Category: Medical (3) Alcoholism: Code(s): F10.20 - Alcohol dependence, uncomplicated Category: Medical (4) SVT (supraventricular tachycardia): Code(s): I47.1 - Supraventricular tachycardia Category: Medical Plan History The patient is a 54-year-old male presenting with hypertension: - Previous medical history includes high blood pressure, confirmed during routine visits - The patient has been monitoring blood pressure at home, mainly in the evenings, reporting differing results compared to clinic readings. - Several potential causes for elevated blood pressure were discussed, including coffee intake, with the patient having consumed five or six coffees before consultations. - Occasional tobacco use continues, estimated at half a pack daily, with a plan to reduce this amount in progress. - Lifestyle factors, including sodium and caffeine intake and stress, were recognized as potential exacerbating contributors to blood pressure management challenges. Problem List - Essential Hypertension - Tobacco Use Disorder - occasional alcohol intake Patient Instructions - Continue to monitor blood pressure regularly, especially in the mornings. - Avoid excessive salt and caffeine intake. - Try to taper coffee consumption gradually and consider switching to decaf. - Avoid stress and use relaxation techniques as needed. - Monitor for symptoms like headaches and consult if they develop. - Continue efforts to decrease smoking gradually. - Follow up with Dr. Vinson as scheduled for further evaluation and management. - Social History: Reports consuming half a pack of cigarettes daily and attempting reduction. Reports alcohol consumption as several drinks occasionally
== END 2024-12-17 09:07 | disposition home or self-care (01) ==
PROVIDERS: PCP Internal Medicine; Visit Provider Internal Medicine
DX: R03.0 Elevated blood-pressure reading, without diagnosis of hypertension (principal); Z72.0 Tobacco use; F10.20 Alcohol dependence, uncomplicated; I47.10 Supraventricular tachycardia, unspecified

== ENCOUNTER 2025-02-23 08:22 | Outpatient (AMB) | payer BC, SELFPAY ==
[2025-02-23 08:38] VITALS: BP 118/72; PULSE 99; BMI 22.0
--- NOTE | 2025-02-23 08:38 | A.OFFVIS_ITS ---
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 He said he gets brief rapid heart rate when he gets angry. This happens infrequently. The symptoms happen infrequently. He is not bothered by them. He denies any prolonged palpitation irregular heartbeat otherwise. Denies any significant exertional symptoms. Denies any exertional chest pain or shortness of breath. No lightheadedness, syncope. Currently not taking any medications. [facility] Medical History (Updated 02/23/25 @ 08:51 by Brown Saucedo MD) SVT (supraventricular tachycardia) Premature ventricular contractions (PVCs) (VPCs) Alcohol dependence Surgical History Hx of colonoscopy History of varicocele Right toe amputee Family History Father Lung cancer Mother Osteoporosis Maternal Grandmother Afib Paternal Uncle No problems noted. 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- Cognitive needs: No Hearing needs: No Vision needs: No Review of Systems Const Denies chills, Denies fatigue, Denies fever(s), Denies frequent falls, Denies weakness, Denies weight gain and Denies weight loss ENT Denies dizziness Card Denies chest pain, Denies leg edema, Denies lightheadedness, Denies palpitations, Denies dyspnea, Denies dyspnea on exertion, Denies orthopnea and Denies other (loss of consciousness) Resp Denies cough, Denies dyspnea and Denies dyspnea on exertion GI Denies hematochezia and Denies change in stool character Musc Denies abnormal gait, Denies muscle weakness, Denies numbness, Denies radiating pain into limb and Denies tingling Neuro Denies abnormal gait, Denies dizziness, Denies frequent falls, Denies numbness, Denies tingling and Denies weakness Endo Denies fatigue and Denies palpitations Physical Exam Vital Signs: BMI result Body Mass Index 22.0 Const General: cooperative, comfortable, no acute distress, alert, awake and Physically active Nutritional Appearance: thin Orientation/consciousness: patient oriented x3 Limitations: no limitations HEENT Head: Yes atraumatic Neck Neck: Yes trachea midline, Yes supple and Yes no JVD Chest Chest palpation & inspection: normal inspection of the chest Resp Effort & Inspection: normal respiratory effort Auscultation: clear to auscultation bilaterally Cardio Jugular venous distension: no JVD Palpation: normal PMI Rate: regular rate Rhythm: regular rhythm Heart sounds: S1 normal heart sound present, S2 normal heart sound present, no click, no gallops, no murmurs and no rubs GI Auscultation: normal bowel sounds Skin General skin exam: no rashes or lesions noted Neuro General: patient oriented x3 and no focal motor deficits Extrem General: Yes no clubbing, cyanosis or edema Office Procedures EKG Details: EKG shows normal sinus rhythm with normal EKG [id number], Complete Assessment & Plan Assessment & Plan (1) Cardiac arrhythmia: Code(s): I49.9 - Cardiac arrhythmia, unspecified Plan: Cardiac arrhythmias both PVCs and SVT in the past. SVTs or self-limiting. He has not had any prolonged episodes added required ED presentation. At this point time he has no life-limiting symptoms. Discussed management of these arrhythmias and discussed about stress mitigation strategies. Avoidance of stimulants especially alcohol was discussed. No medications has been prescribed at this point time. Advised to call me with worsening symptoms. Will follow up in the clinic if need be. Thank you for allowing me to partake in his care Coding Level of Care Code Est Pt Level 3 (50697) Complex EM visit Add On G2211 Diagnoses Cardiac arrhythmia I49.9 CPT Codes EKG - CPT: 40820-[id number], Complete ([id number])
== END 2025-02-23 08:51 | disposition home or self-care (01) ==
LOC: HO.HCS 08:22
PROVIDERS: PCP Internal Medicine; Visit Provider Internal Medicine Cardiovascular Disease
DX: I49.9 Cardiac arrhythmia, unspecified (principal)
CPT/HCPCS: 93010; 99213

== ENCOUNTER → 2025-02-23 08:22 | Outpatient (BNVA) | payer BC, SELFPAY | PROVIDERS: PCP Internal Medicine; Visit Provider Internal Medicine Cardiovascular Disease | DX: I49.3 Ventricular premature depolarization (principal); I49.9 Cardiac arrhythmia, unspecified; F10.20 Alcohol dependence, uncomplicated; F17.210 Nicotine dependence, cigarettes, uncomplicated | CPT/HCPCS: 93005 ==